=== PATIENT | female | born 1940 | race Caucasian/White ===

== ENCOUNTER 2016-07-19 16:38 | Emergency (ER) | payer MEDICARE ==
[~2016-07-19] VITALS: Ht 160 cm; Wt 60.0 kg
[~2016-07-19 16:38] MED LIST: ACET1TAB42 PO; AMT50T PO; ASCO100089 PO; ASPI-628 PO; CARB1TAB17 PO; CHOL100094 PO; CYCL5TAB PO; DILT240C87 PO; FOLI0.4T2 PO; GABA-502 PO; GLUC1TAB PO; HYDR25TA4 PO; LOVA20TA PO; LUBI8CAP4 PO; MAGN100P MC; OMEG10005 PO; [UNRECOGNIZED DRUG - CODE] PO
[2016-07-19 16:42] VITALS: BP 184/87; PULSE 77; RESP 28; O2SAT 100
[2016-07-19] MEDS ORDERED: LORazepam 1 mg Tablet PO ONE (18:45)
--- NOTE | 2016-07-19 19:00 | ED.REPORT ---
HPI-Chest Pain 40 and Over Date of Service Jul 19, 2016 ED Provider: Gee Perez DO The patient is a 75-year-old female with a history of Parkinson's disease, hypertension, hypothyroidism, anxiety, spinal disc problems, possible IBS, and diverticulosis who presents to the ER for elevated BP onset prior to arrival. Patient reports that she saw Dr. Chang (GI) yesterday and was started on Bentyl. She took 2 doses of the Bentyl with a Xanax this morning, and has not been feeling well. She reports body shaking, tingling, palpitations, chills, diaphoresis, chest pressure, tinnitus, and generalized weakness. She describes her chest pressure as "someone sitting on it," but it does not radiate else where. Her chest pain gets worse with deep breathing. Her BP at home was 204/74 , which is significantly higher than her normal BP (130s systolic). She is on HCTZ and Diltiazem for HTN. She took a baby ASA before coming to the ER. She denies any one-sided weakness, headache, dizziness, vision changes, SOB, vomiting, or numbness. She has chronic epigastric abdominal pain and diarrhea that is under ongoing workup by GI. There is a plan for EGD and colonoscopy. Of note, patient has had long history of anxiety and stress. Apparently she was on high dose of Xanax before her previous PCP took her off it in May 2016. She then experienced withdrawal symptoms and had to go back on the Xanax. She is taking Xanax 0.5mg PO 1 tab in the morning and 1/2 tab at bed time. She admits to be under a lot of stress lately. Nursing Notes Stated Complaint: BLOOD PRESSURE Chief Complaint: General Complaint Nursing Notes Reviewed: Yes Allergies: Coded Allergies: Sulfa (Sulfonamide Antibiotics) (Verified Allergy, Severe, RASH, 07/26/14) hydrocodone (Verified Allergy, Severe, GI UPSET, 07/26/14) Scheduled ([covera-hs]) 240 MG PO DAILY Amitriptyline (Amitriptyline) 50 Mg Tab 50 MG PO HS Ascorbic Acid (Vitamin C) 1,000 Mg Tab.chew 1,000 MG PO DAILY Aspirin (Aspir 81) 81 Mg Tablet. 81 MG PO DAILY Carbidopa/Levodopa 25-250 mg (Carbidopa/Levodopa 25-250 mg) 1 Each Tablet 1 EACH PO DAILY Cholecalciferol (Vitamin D3) (Vitamin D3) 1,000 Unit Capsule 1,000 UNIT PO DAILY Diltiazem ER (Diltiazem ER) 240 Mg Capsule.er 240 MG PO DAILY Folic Acid (Folic Acid) 0.4 Mg Tablet 0 PO DAILY Gabapentin (Gabapentin) 300 Mg Capsule 300 MG PO TID Glucosam/MSM/Vit C/Christoph/Hrb#21 (Glucosamine-MSM Complex Tab) 1 Each Tablet 1 EACH PO DAILY Hydrochlorothiazide (Hydrochlorothiazide) 25 Mg Tablet 25 MG PO DAILY Lovastatin (Lovastatin) 20 Mg Tablet 20 MG PO dinner Lubiprostone (Amitiza) 8 Mcg Capsule 8 MCG PO BID Magnesium Citrate (Magnesium Citrate) 100 Gm Powder 0 MC DAILY [place]-3 Fatty Acids ([place]-3) 1,000 Mg Capsule 2,000 MG PO DAILY Pantoprazole DR (Protonix) 40 Mg Tablet 40 MG PO DAILY Scheduled PRN Acetaminophen/Codeine 300-30mg (Acetaminophen/Codeine 300-30mg) 1 Each Tablet 1 EACH PO Q6 PRN PRN For Pain Cyclobenzaprine (Cyclobenzaprine) 5 Mg Tablet 5 MG PO TID PRN PRN spasms General Time Seen by MD: 18:00 Chief Complaint Chest pressure Hx Obtained From: Patient, Spouse, Daughter Arrived By: Walk-in Sudden in Onset?: Yes Onset Occurred: Just prior to arrival Symptom Duration: Since onset Location: : Substernal Quality: Heaviness, Pressure Radiation: : Does not radiate Migration/Movement: Reports: None Severity: Current: Mild Severity: Maximum: Severe Associated with: Reports: Diaphoresis, Nausea, Numbness/Tingling, Palpitations , Weakness, Denies: Dizziness, Fatigue, Lightheaded, Near-syncope, Shortness of Breath, Vomiting, Wheezing Pertinent Negative: Pt denies other symptoms Recent Healthcare: No recent hospitalization, Recent doctor visit Similar Sx Previous: No Risk Factors )( CAD Risk Stratification Hyperlipidemia Hypertension Risk factors reviewed )( TAD Risk Stratification Hypertension Risk factors reviewed )( PE Risk Stratification No risk factors Past Medical History Past Medical History Parkinson Anxiety Reports: Hypertension Reports: Thyroid disease Past Surgical History Cervical spine surgery Reports: Cataract surgery, Tonsillectomy Smoking History Former Smoker Social History Alcohol Use: 1-3 per week Drug Use: Denies drug use Other Social History: Good social support, Occupation Retired, Previously worked in [employer] at [employer] Ambulatory Status Independent Review of Systems Basic Review of Systems Eyes: Vision NL, No discharge ENT: Hearing NL, No pain, No nasal congestion, No pharyngeal pain Constitutional: Reports: Chills, Fatigue, Denies: Fever Respiratory: Denies: Dyspnea on exertion, Hemoptysis, Shortness of breath, Wheezing Cardiovascular: Reports: Chest pain, Palpitations, Denies: Edema, Orthopnea, Syncope GI: Reports: Abdominal pain, Diarrhea, Nausea, Denies: Anorexia, Bloody/tarry stool, Vomiting Musculoskeletal: Reports: Back pain Neurologic: Reports: Weakness, Denies: Change LOC, Confusion, Dizziness, Headache, Problem walking, Slurred speech, Vision change Psychiatric: Reports: Anxiety, Denies: Confusion, Delusional Complete sys rev & neg: except as marked. Physical Exam Initial Vital Signs Vital Signs (First) Date Time Temp Pulse Resp B/P Pulse Ox O2 Delivery O2 Flow Rate FiO2 07/19/16 16:42 36.8 77 28 184/87 100 Room Air Initial VS: Reviewed (hypertensive and tachypnea) Head / Eyes: Atraumatic, Normocephalic, PERRL ENT: Mucous membranes moist, Conjunctiva normal, No scleral icterus Neck: Supple, Non-tender, Full range of motion Lymphatic: No lymphadenopathy Skin: Warm, Dry, No cyanosis Neurologic: Alert, Oriented, Nonfocal General/Constitutional: Awake, Alert, No acute distress, Well appearing, Well nourished, Not toxic appearing Respiratory / Chest: Atraumatic, Breath sounds NL, Breath sounds = bilat, No respiratory distress, No rales, No wheezing, No retractions Cardiovascular: Heart rate NL, Regular rhythm, Heart sounds NL, Pulses = bilaterally Abdomen: Atraumatic, Soft, No rebound, BS normoactive, No distention Tenderness/Guarding/Rebound: Positive: Guarding voluntary, Tender diffuse Neurologic: Oriented X3, Speech NL, No motor deficits, No sensory deficits, CN II - XII intact, Cerebellar NL, Memory NL Interpretation & Diagnostics Lab Results Interpretation Result Diagram: 07/19/16185607/19/16 185 Test 07/19/16 18:57 07/19/16 21:07 White Blood Count 8.3th/mm3 (3.8-10.1) Red Blood Count 4.36mil/mm3 (3.90-5.20) Hemoglobin 13.2g/dL (12.0-15.6) Hematocrit 38.5% (35.0-46.0) Mean Corpuscular Volume 88.3fL (81-100) Mean Corpuscular Hemoglobin 30.3pg (27.0-35.0) Mean Corpuscular Hemoglobin Concent 34.3% (32.0-37.0) Red Cell Distribution Width 13.2% (12.3-15.4) Platelet Count 278bil/L (150-400) Neutrophils (%) (Auto) 78.4% (40-74) Lymphocytes (%) (Auto) 12.5% (14-46) Monocytes (%) (Auto) 7.9% (4-12) Eosinophils (%) (Auto) 0.5% (0-5) Basophils (%) (Auto) 0.5% (0-3) Sodium Level 135mEq/L (134-144) Potassium Level 3.6mEq/L (3.5-5.2) Chloride Level 98mEq/L (97-108) Carbon Dioxide Level 22mmol/L (18-29) Blood Urea Nitrogen 20mg/dL (8-27) Creatinine 0.92mg/dL (0.57-1.00) Estimat Glomerular Filtration Rate 85mL/min (>59) Glucose Level 116mg/dL (60-99) Calcium Level 9.9mg/dL (8.5-10.1) Magnesium Level 2.1mg/dL (1.6-2.6) Total Bilirubin 0.4mg/dL (0.0-1.2) Aspartate Amino Transf (AST/SGOT) 16U/L (0-50) Alanine Aminotransferase (ALT/SGPT) 13U/L (0-32) Alkaline Phosphatase 61U/L (25-165) Total Protein 6.7g/dL (6.4-8.4) Albumin 4.0g/dL (3.4-5.0) Lipase 30U/L (13-60) Thyroid Stimulating Hormone (TSH) 5.380uIU/mL (0.450-4.500) Hold Gastelum Top Tube Received (Received) Troponin T 0.010ug/L (0.0-0.011) Lab values outside NL range: no clinical significance. Lab Results Interpretation: TSH mildly elevated ECG Interpretation Time: 18:13 Interpreted by: ED physician Normal ECG Interpretation: Normal rate (71), Normal sinus rhythm, No acute ischemic changes Re-Eval/Medical Decision Med Decision/Clinical Course 75-year-old female with a history of Parkinson's disease, HTN, hypothyroidism, anxiety, pancreatic cyst, IBS, and diverticulosis who presents to the ER for elevated BP onset prior to arrival. She also admits to chest pressure, palpitations, epigastric pain, nausea, and generalized shaking. Her BP was 204/ 74 at home and 184/87 in the ER initially. She reports starting a new medication called Bentyl, but has been feeling sick the whole day. She tried some Xanax at home with no relief. Patient is also very anxious about her health in general. She saw Dr. Chang yesterday and is doing extensive workups, including EGD/Colonoscopy and CT abd scheduled to be in August. In the ER, patient appears anxious with hyperventilation and mild shaking, but overall nontoxic. She has diffuse moderate abdominal tenderness on exam, but this is not new to the patient. The rest of exam is benign with no neurological deficit. Negative EKG and troponin x 2. Although her TSH is mildly elevated, it is acceptable for her age. Her symptoms improved with Ativan and Prednisone in the ER. Patient is greatly concerned of her pancreatic cyst that could turn into cancer. However, given her history and clinical presentation, I do not think emergent imaging is indicated. Her vital signs and labs are negative for serious conditions such as ACS, stroke, pancreatitis, diverticulitis, or aortic dissection. It is likely that the chest pain is both referred pain from the epigastric and anxiety. There are numerous possible causes of her epigastric pain, including GERD, peptic ulcer, gastritis, hiatal hernia, pancreatitis cysts , or malignancy. However, because patient is undergoing extensive workups with GI as outpatient and already has the CT ordered, I will defer the workups to outpatient. All of these were explained to the patient. I also recommend her not to take the Bentyl tonight and call Dr. Chang tomorrow to see if she should continue with the Bentyl. Patient verbalized understanding and was discharged on improved condition. Source of Hx: Old records, Family Time of Eval: 19:55 Patient Status: Condition improved Re-Evaluation/Progress Note: Patient reports improvement of the anxiety after the Ativan 1mg PO was given. She still complains of epigastric pain and heartburn, which are not new symptoms. She has a history of pancreatic cyst on CT 4 years ago, and is very concerned of cancer. Pending order of a CT abd/pelvis from Dr. Chang as outpatient. I encouraged the patient to follow up with Dr. Chang for her abdominal symptoms as they are chronic with no new changes. She concurs. Time of Eval: 22:00 Patient Status: Condition improved Re-Evaluation/Progress Note: Patient reports improvement of the epigastric pain and chest pressure with the Protonix. Second trop came back negative. Patient agreed with discharge plans. Differential Diagnosis: Positive: Anxiety disorder, Chest pain, acute, Esophagitis, GERD, Gastritis, Hiatal hernia, Myocardial infarction Counseled Regarding: Diagnosis, Lab results, Need for follow-up, When/why to return to ED Discharge & Departure Shift Change Sign-Out Response to Therapy: Improved Primary Impression: Anxiety about health Additional Impression: Anxiety attack Disposition: Home Discharge Condition All VS Reviewed: Yes Condition: Stable Patient Instructions: Anxiety (ED) Additional Instructions: It is likely that your elevated blood pressure and symptoms are due to anxiety attack. It is understandable that you are under a lot of stress and is anxious about your health. However, you already have all the workups with Dr. Chang ( Continuous Improvement Lead) and I will defer to Dr. Chang for your abdominal symptoms. In the ER here, your EKG and labs are negative for a heart attack. It is possible that the chest pressure you experience is from either the epigastric abdominal pain or the anxiety. I will give you a prescription for a medication called Protonix that can help with your heartburn. Please talk to Dr. Chang and let him know that you were seen in the ER and given the Protonix. You should also call him tomorrow to ask if you should continue the Bentyl given the reactions you had today. Please do the labs and imaging studies that were ordered by Dr. Chang. He already ordered an abdominal CT and his office should contact you soon for the date. Follow up with your primary care doctor, Dr. Lynn, in a week to discuss about anxiety medication. You should also practice breathing and relaxation exercise. Your blood pressure in the ER was a little elevated, but it went down as you calm down. Continue to take your blood pressure medications and check your blood pressure daily. Please return to the ER if you develop severe chest pain, vomiting, headache, change in mental status, slurred speech, or one-sided weakness. Referrals: Lida Lynn DO (PCP) 1 Week Meliton Chang MD Attending Statement I personally took a history of performing exam. Greg is having a classic panic attack. MN was ruled out. PE seems very unlikely. She had no shortness of breath. She was clearly having a panic attack. This was medicated with a benzodiazepine and she looked and felt better. She will troponins were normal. She is discharged stable condition recommend close outpatient follow-up. copies to: Lida Lynn DO; Meliton Chang MD, Ngochanh H DO Jul 19, 2016 19:00 Gee Perez DO Jul 19, 2016 22:45
[2016-07-19 19:06] LABS: BASOPHILS % (AUTO) 0.5 % (0-3); EOSINOPHILS % (AUTO) 0.5 % (0-5); MONOCYTES % (AUTO) 7.9 % (4-12); Mean Corpuscular Hemoglobin 30.3 pg (27.0-35.0); Mean Corpuscular Volume 88.3 fL (81-100); NEUTROPHILS % (AUTO) 78.4 % (40-74); Platelet Count 278 bil/L (150-400)
[2016-07-19 19:28] LABS: TROPONIN T < 0.010 ug/L (0.0-0.011)
[2016-07-19 19:48] LABS: Lipase 30 U/L (13-60); Magnesium 2.1 mg/dL (1.6-2.6)
[2016-07-19 19:52] VITALS: BP 174/58; RESP 20; O2SAT 100
[2016-07-19] MEDS ORDERED: Pantoprazole 40 mg ER24 Tablet PO ONE (19:55)
[2016-07-19] MEDS ORDERED: PANT40TA2 PO (21:40)
[2016-07-19 22:15] VITALS: BP 153/62; PULSE 73; RESP 18; O2SAT 97
[2016-08-04] MEDS ORDERED: LORA0.5T PO (08:43)
== END 2016-07-19 22:16 | disposition home or self-care (01) ==
LOC: SED 16:38
DX: F41.9 Anxiety disorder, unspecified (principal); R25.1 Tremor, unspecified; R20.2 Paresthesia of skin; R00.2 Palpitations; H93.19 Tinnitus, unspecified ear; R07.2 Precordial pain; R53.1 Weakness; F43.9 Reaction to severe stress, unspecified; G89.29 Other chronic pain; R10.13 Epigastric pain; R19.7 Diarrhea, unspecified; I10 Essential (primary) hypertension; G20 Parkinson's disease; E03.9 Hypothyroidism, unspecified; Z79.82 Long term (current) use of aspirin; Z87.891 Personal history of nicotine dependence; Z88.2 Allergy status to sulfonamides; Z88.5 Allergy status to narcotic agent

== ENCOUNTER → 2016-08-04 | Day surgery (SDC) | payer MEDICARE ==
[~2016-08-04] VITALS: Ht 160 cm; Wt 60.0 kg
[~2016-08-04] MED LIST changes: +ASCO500C6 PO; +ASPI-973 PO; +CHOL10008 PO; +DICY10CA56 PO; +DILT240C89 PO; +DOCU240C41 PO; +LAC10 PO; +LEVO88TA4 PO; +LORA0.5T PO; +Lactated Ringer's 1,000 ML IV SCH; +Lidocaine PF 1% 30 mL Inj ONE; +MetoCLOpramide 5 mg/mL 2 mL Inj IVPUSH PRN; +Ondansetron 2 mg/mL 2 mL Inj IVPUSH PRN; +PANT40TA2 PO; +Propofol 10,000 mCg/mL 20 mL Inj ONE; +TRAZ150T72 PO
[2016-08-04 08:32] VITALS: BP 126/56; PULSE 67; RESP 16; O2SAT 99
--- NOTE | 2016-08-04 08:54 | PCM.HPANE ---
Patient Data Date of Service: Aug 04, 2016 Surgeon Admitting Provider: Attending Provider:Dread Hackett MD Primary Care Physician:Lida Lynn DO Other Provider:Sulema Beaver Anesthesia Reason for Visit Pancreatic Cyst Ht/WT & BMI Height (Feet): 5 Height (Inches): 3 Weight (Kilograms): 60 Body Mass Index 23.00 Allergies Coded Allergies: Sulfa (Sulfonamide Antibiotics) (Verified Allergy, Severe, RASH, 07/26/14) hydrocodone (Verified Allergy, Severe, GI UPSET, 07/26/14) Past Anesthesia History Anesthesia History: Denies:: Abnormal Airway, Anesthesia Reactions, Difficult Intubation, Fam Anesthesia Reaction, Fam Malignant Hypertherm, Malignant Hyperthermia Diabetes History Hx Diabetes?: No MRSA MRSA: No Medications Home Meds Incl Beta Naomi: No Active Scripts Pantoprazole DR (Protonix)40 Mg Iswrai61 Mg PO DAILY #30 TABLET Ref 0 Prov:GouldAngy yanessuresh H DO 07/19/16 Reported Medications Lorazepam 0.5 Mg Tablet0.5 Mg PO HS PRN For Insomnia Ref 0 08/04/16 Cholecalciferol (Vitamin D3) (Vitamin D3)1,000 Unit Capsule1,000 Unit PO DAILY 07/26/14 Ascorbic Acid (Vitamin C)1,000 Mg Tab.chew1,000 Mg PO DAILY #30 TABLET Ref 0 07/26/14 Magnesium Citrate 100 Gm Powder Mc Daily 07/26/14 Lovastatin 20 Mg Dvdyer01 Mg PO dinner #30 TABLET Ref 0 07/26/14 Hydrochlorothiazide 25 Mg Fvnsxi40 Mg PO DAILY 30 Days Ref 0 07/26/14 Gabapentin 300 Mg [id number] Mg PO TID 30 Days Ref 0 07/26/14 Diltiazem ER 240 Mg Capsule.er240 Mg PO DAILY 30 Days Ref 0 07/26/14 [covera-hs] No Conflict [id number] Mg PO DAILY 07/26/14 Carbidopa/Levodopa 25-250 mg 1 Each Tablet1 Each PO DAILY 07/26/14 Amitriptyline 50 Mg Tab50 Mg PO HS Ref 0 07/26/14 Lubiprostone (Amitiza)8 Mcg Capsule8 Mcg PO BID 07/26/14 Acetaminophen/Codeine 300-30mg 1 Each Tablet1 Each PO Q6 PRN For Pain Ref 0 07/26/14 Discontinued Reported Medications [place]-3 Fatty Acids ([place]-3)1,000 Mg Capsule2,000 Mg PO DAILY 07/26/14 Glucosam/MSM/Vit C/Christoph/Hrb#21 (Glucosamine-MSM Complex Tab)1 Each Tablet1 Each PO DAILY 07/26/14 Folic Acid 0.4 Mg Tablet Po Daily 07/26/14 Cyclobenzaprine 5 Mg Tablet5 Mg PO TID PRN spasms 07/26/14 Aspirin (Aspir 81)81 Mg Tablet.dr81 Mg PO DAILY Ref 0 07/26/14 History History of ENT Problems?: Yes HEENT History: Positive for:: Cataracts (S/P BILAT EXTRACTION) Dysphagia Denies:: Abnormal Airway Difficult Intubation Hearing Problem Denture Type: Full- Upper Full- Lower Teeth Condition: No Teeth Hx of Heart Problems?: Yes Cardiovascular History: Positive for:: Hypertension Denies:: Atrial Fibrillation Chest Pain Congestive Heart Failure Valvular Heart Disease Hx of Respiratory Problem?: No Respiratory History: Denies:: Asthma COPD Tuberculosis Use of C-PAP Machine Hx Neurologic Problems?: Yes Neurological History: Positive for:: Headaches Parkinson's Disease Denies:: CVA Hx of GI Problems?: Yes Hx of Problems?: No Female Hx: Denies:: Currently Skin History: Denies:: History Skin Disorders? Pressure Ulcers Hx Musculoskeletal Problems?: Yes Musculoskeletal History: Denies:: Fibromyalgia Joint Replacement Hx of Psycho/Social Problems?: No Psycho Social History: Positive for:: Anxiety Denies:: Hx Depression Hx Surgeries?: Yes (CERVICAL DISK REPLACEMENT) Hx Any Other Health Problems?: Yes Other History: Positive for:: Thyroid Disease Denies:: Cancer Endocrine Disease Hospitalization History Blood Transfusions: Denies:: Blood Transfusions Hx Diabetes: No Other Pertinent History: parkinson's diagnosed, no major symptoms per patient. occasional balance issues Hx Alcohol Use: Yes (occ)Hx Substance Use: No Smoking Status: Former Smoker Have You Smoked inLast 12 mo: No Stop/Bang Treated for Sleep Apnea?: No Do You Have a CPAP Machine?: No S-Snoring: Do You Snore Loudly: Yes T-Tired: feel tired, fatigued: No O-Obsered: Observed not breath: No P-Blood Pressure: treated: Yes B- Body Mass Index > 35 kg/m2: No A- Age over 50: Yes N- Neck Large Circumference: No G- Gender Male: No KRYSTLE Total Score: 3 Risk Assessment Category Category 1A: Patient has history of documented sleep apnea, and HAS NOT received any narcotic, sedative or anesthesia administration during this stay. Category 1B: Patient has history of documented sleep apnea, and HAS received any narcotic , sedative or anesthesia administration during this stay Category 2: Patient has SUSPECTED Obstructive Sleep Apnea, and HAS received any narcotic , sedative or anesthesia administration during this stay. Category 3: Patient has SUSPECTED Obstructive Sleep Apnea and HAS NOT received narcotic, sedative or anesthesia administration during this stay. Category 4: Outpatient in Procedural Areas with known sleep apnea or who screen positive for High Risk via the STOP/BANG questionnaire. Exam Exam Vital Signs Vital Signs Date Time Temp Pulse Resp B/P Pulse Ox O2 Delivery O2 Flow Rate FiO2 08/04/16 08:32 36.3 67 16 126/56 99 Room Air General Appearance: Alert, Oriented X3, Cooperative HEENT/AIRWAY: MP 2, Neck Movement (OK despite fusion) Lungs: Clear to Auscultation, Normal Air Movement Heart: Regular Rate/Rhythm, Normal S1, Normal S2 Plan Impression Patient chart reviewed, patient interviewed and anesthestic plan with risks, benefits, and alternatives discussed, and informed consent obtained. NPO per Anesth. Guidelines: Yes ASA Physical Status: ASA3 Severe Disease Anesthetic Plan: MAC Bene/Risks/Altern/Consents: Yes HP Complete Prior to Induction: Yes Eloy Funes MD Aug 04, 2016 08:48
[2016-08-04 09:50] VITALS: BP 107/54; PULSE 53; RESP 16; O2SAT 100
--- NOTE | 2016-08-04 09:57 | PCM.ANEP1 ---
Post Anesthesia PACU Phase 1 Assessment Vital Signs Vital Signs Date Time Temp Pulse Resp B/P Pulse Ox O2 Delivery O2 Flow Rate FiO2 08/04/16 09:50 35.7 53 16 107/54 100 Room Air 08/04/16 08:32 36.3 67 16 126/56 99 Room Air Anesthetic Administered: MAC Level of Alertness: Awake, talking WILSON's with Equal Strength: Yes Pain: No Nausea or Vomiting: No CV Function & Hydration Stable: Yes Airway Device: Oxygen Delivery: Room Air Lungs: Normal Air Movement PACU Phase 2 Assessment Complications: No Follow up Care: N/A Patient Instructions Provided: N/A Eloy Funes MD Aug 04, 2016 09:57
[2016-08-04 10:00] VITALS: BP 116/62; PULSE 59; RESP 16; O2SAT 100
[2016-08-04 10:07] VITALS: BP 117/58; PULSE 58; RESP 16; O2SAT 96
--- NOTE | 2016-08-04 10:22 | ENDO ---
[address] [address] ENDOSCOPY PROCEDURE PATIENT: MARBIN THOMAS : 1940 MR#: [id number] ADMIT: 08/04/2016 JOB ID: [id number] DATE: 08/04/2016 PROCEDURE: EUS. INDICATION: The patient with a pancreatic cyst in the tail. The patient also has multiple lesions on the liver on the right side. INSTRUMENT USED: Quintura-UCT 180 linear echo endoscope. MEDICATIONS: Please see Dr. Alin Funes's anesthesia report for details regarding sedation. PROCEDURE DETAILS: After informed consent was obtained, the patient was brought into the GI suite, where she was placed on oxygen via nasal cannula and then monitored with continuous pulse oximeter, telemetry and blood pressure monitoring. A time-out was performed. Then, she was placed in a left lateral decubitus position and a bite block was placed. The linear echo endoscope was then introduced through the bite block and advanced without difficulty to the second portion of the duodenum. Linear echo endoscopic imaging demonstrated the followin. In the tail of the pancreas, there was an approximately 10.7 mm x 8.4 mm well-circumscribed hypoechoic lesion. Appearance was consistent with a cyst. No septations were identified. No mural nodules were noted. The stricture did not appear to be communicating with the pancreatic duct. The remainder of the pancreas otherwise appeared unremarkable. The pancreatic duct measured approximately 3 mm in the body of the pancreas. 2. The remainder of the pancreatic examination was otherwise unremarkable except for some hyperechogenicity suggestive of fatty pancreas. 3. The common bile duct was identified and appeared to be normal in course and measured approximately 4.5 mm. 4. The portal vein was identified and normal flow was seen. 5. The splenic artery and splenic vein were identified and appeared normal. 6. The celiac axis was identified and appeared unremarkable. 7. Examined portions of the left lobe of the liver appeared normal. 8. The adrenal gland was identified and appeared normal. 9. Examined portions of the spleen and the left kidney appeared unremarkable. IMPRESSION: A 10.7 mm x 8.4 mm cyst in the tail of the pancreas with benign appearance. RECOMMENDATIONS: 1. Continued surveillance. Would recommend MRI in three months. 2. Additionally would recommend she undergo biopsy of the liver lesions seen on recent CT scan. COMPLICATIONS: None. ESTIMATED BLOOD LOSS: Less than 5 mL.
== END | disposition home or self-care (01) ==
LOC: END 00:56
PROVIDERS: ATTEND Internal Medicine Gastroenterology
DX: K86.2 Cyst of pancreas (principal); K76.9 Liver disease, unspecified; R10.12 Left upper quadrant pain; R19.7 Diarrhea, unspecified; I10 Essential (primary) hypertension; E78.5 Hyperlipidemia, unspecified; E03.9 Hypothyroidism, unspecified; G20 Parkinson's disease; F41.9 Anxiety disorder, unspecified; M19.90 Unspecified osteoarthritis, unspecified site; K21.9 Gastro-esophageal reflux disease without esophagitis; R73.03 Prediabetes; Z79.82 Long term (current) use of aspirin; Z87.891 Personal history of nicotine dependence
CPT/HCPCS: 43237; J7120

== ENCOUNTER → 2016-08-12 | Day surgery (SDC) | payer MEDICARE ==
[~2016-08-12] VITALS: Ht 160 cm; Wt 59.0 kg
[~2016-08-12] MED LIST changes: +0.9% Sodium Chloride 1,000 ML IV SCH; -ACET1TAB42 PO; -AMT50T PO; -ASCO100089 PO; -ASPI-628 PO; -CHOL100094 PO; -CYCL5TAB PO; -DILT240C87 PO; -FOLI0.4T2 PO; -GLUC1TAB PO; -LORA0.5T PO; -LUBI8CAP4 PO; +Lactated Ringer's 1,000 ML IV ONE; -Lidocaine PF 1% 30 mL Inj ONE; -MAGN100P MC; +PANT20TA2 PO; -PANT40TA2 PO; +Sodium Chloride LOK Flush 10 mL Syringe IV PRN; -[UNRECOGNIZED DRUG - CODE] PO; +fentaNYL-PF 50 mCg/mL 2 mL Inj IVPUSH PRN
[2016-08-12 07:34] VITALS: BP 155/77; PULSE 87; RESP 16; O2SAT 100
--- NOTE | 2016-08-12 08:10 | PCM.HPANE ---
Patient Data Date of Service: Aug 12, 2016 Surgeon Admitting Provider: Attending Provider:Meliton Chang MD Primary Care Physician:Lida Lynn DO Other Provider: Reason for Visit Diarrhea, Left Upper Quadrant Pain Ht/WT & BMI Height (Feet): 5 Height (Inches): 3 Weight (Kilograms): 59 Body Mass Index 23.00 Allergies Coded Allergies: Sulfa (Sulfonamide Antibiotics) (Verified Allergy, Severe, RASH, 08/12/16) hydrocodone (Verified Allergy, Severe, GI UPSET, 08/12/16) Past Anesthesia History Anesthesia History: Denies:: Abnormal Airway, Anesthesia Reactions, Difficult Intubation, Fam Anesthesia Reaction, Fam Malignant Hypertherm, Malignant Hyperthermia Diabetes History Hx Diabetes?: No MRSA MRSA: No Medications Home Meds Incl Beta Naomi: No Reported Medications Pantoprazole DR 20 Mg Tablet.dr20 Mg PO DAILY Ref 0 08/12/16 Cholecalciferol (Vitamin D3) (Vitamin D3)1,000 Unit Tab.chew1,000 Unit PO DAILY 08/11/16 Ascorbic Acid (Vitamin C)500 Mg Capsule.er1,000 Mg PO 08/11/16 Trazodone 150 Mg Tewute054 Mg PO HS Ref 0 08/11/16 Docusate Calcium (Stool Softener)240 Mg Uoiexmg041 Mg PO HS 08/11/16 [place]-3 Fatty Acids ([place]-3)1,000 Mg Capsule1,000 Mg PO DAILY 08/11/16 Lovastatin 20 Mg Qxdmiy29 Mg PO HS #30 TABLET Ref 0 08/11/16 Levothyroxine 88 Mcg Otdvby65 Mcg PO DAILY Ref 0 08/11/16 Hydrochlorothiazide 25 Mg Tdpqsl35 Mg PO DAILY 30 Days Ref 0 08/11/16 Gabapentin 300 Mg Tuviwli355 Mg PO TID Ref 0 08/11/16 Diltiazem ER 240 Mg Cap.er.05r173 Mg PO DAILY Ref 0 08/11/16 Carbidopa/Levodopa 25-250 mg 1 Each Tablet1 Tablet PO DAILY 08/11/16 Discontinued Reported Medications Lactulose 10 Gm/15 Ml Jxxenpxt29 Gm PO 08/11/16 Dicyclomine (Bentyl)10 Mg Gkvxxzm65 Mg PO QID 08/11/16 Aspirin 81 Mg Rptxuy24 Mg PO DAILY Ref 0 08/11/16 Lorazepam 0.5 Mg Tablet0.5 Mg PO HS PRN For Insomnia Ref 0 08/04/16 Cholecalciferol (Vitamin D3) (Vitamin D3)1,000 Unit Capsule1,000 Unit PO DAILY 07/26/14 Ascorbic Acid (Vitamin C)1,000 Mg Tab.chew1,000 Mg PO DAILY #30 TABLET Ref 0 07/26/14 Magnesium Citrate 100 Gm Powder Mc Daily 07/26/14 Lovastatin 20 Mg Vvzthg67 Mg PO dinner #30 TABLET Ref 0 07/26/14 Hydrochlorothiazide 25 Mg Uboyrc02 Mg PO DAILY 30 Days Ref 0 07/26/14 Gabapentin 300 Mg Opizyzn973 Mg PO TID 30 Days Ref 0 07/26/14 Diltiazem ER 240 Mg Capsule.er240 Mg PO DAILY 30 Days Ref 0 07/26/14 [covera-hs] No Conflict Lwtuj617 Mg PO DAILY 07/26/14 Carbidopa/Levodopa 25-250 mg 1 Each Tablet1 Each PO DAILY 07/26/14 Amitriptyline 50 Mg Tab50 Mg PO HS Ref 0 07/26/14 Lubiprostone (Amitiza)8 Mcg Capsule8 Mcg PO BID 07/26/14 Acetaminophen/Codeine 300-30mg 1 Each Tablet1 Each PO Q6 PRN For Pain Ref 0 07/26/[address] (Protonix)40 Mg Hfiklb43 Mg PO DAILY #30 TABLET Ref 0 Prov:Jacki Gould DO 07/19/16 History History of ENT Problems?: Yes HEENT History: Positive for:: Cataracts (S/P BILAT EXTRACTION) Dysphagia Denies:: Abnormal Airway Difficult Intubation Hearing Problem Denture Type: Full- Upper Full- Lower Teeth Condition: No Teeth Hx of Heart Problems?: Yes Cardiovascular History: Positive for:: Hypertension Denies:: AICD Atrial Fibrillation Chest Pain Congestive Heart Failure Pacemaker Valvular Heart Disease Hx of Respiratory Problem?: No Respiratory History: Denies:: Asthma COPD Tuberculosis Use of C-PAP Machine Hx Neurologic Problems?: Yes Neurological History: Positive for:: Headaches Parkinson's Disease Denies:: CVA Hx of GI Problems?: Yes Hx of Problems?: No Female Hx: Denies:: Currently (barbra) Skin History: Denies:: History Skin Disorders? Pressure Ulcers Hx Musculoskeletal Problems?: Yes Musculoskeletal History: Denies:: Joint Replacement Hx of Psycho/Social Problems?: No Psycho Social History: Positive for:: Anxiety Denies:: Hx Depression Hx Surgeries?: Yes (CERVICAL DISK REPLACEMENT) Hx Any Other Health Problems?: Yes Other History: Positive for:: Thyroid Disease Denies:: Cancer Endocrine Disease Hospitalization History Blood Transfusions: Denies:: Blood Transfusions Hx Diabetes: No Hx Alcohol Use: Yes (occ)Hx Substance Use: No Smoking Status: Former Smoker Have You Smoked inLast 12 mo: No Stop/Bang Treated for Sleep Apnea?: No Do You Have a CPAP Machine?: No S-Snoring: Do You Snore Loudly: No T-Tired: feel tired, fatigued: No O-Obsered: Observed not breath: No P-Blood Pressure: treated: Yes B- Body Mass Index > 35 kg/m2: No A- Age over 50: Yes N- Neck Large Circumference: No G- Gender Male: No KRYSTLE Total Score: 2 KRYSTLE Risk Assessment: Low Risk, <3 Yes Risk Assessment Category Category 1A: Patient has history of documented sleep apnea, and HAS NOT received any narcotic, sedative or anesthesia administration during this stay. Category 1B: Patient has history of documented sleep apnea, and HAS received any narcotic , sedative or anesthesia administration during this stay Category 2: Patient has SUSPECTED Obstructive Sleep Apnea, and HAS received any narcotic , sedative or anesthesia administration during this stay. Category 3: Patient has SUSPECTED Obstructive Sleep Apnea and HAS NOT received narcotic, sedative or anesthesia administration during this stay. Category 4: Outpatient in Procedural Areas with known sleep apnea or who screen positive for High Risk via the STOP/BANG questionnaire. Exam Exam Vital Signs Vital Signs Date Time Temp Pulse Resp B/P Pulse Ox O2 Delivery O2 Flow Rate FiO2 08/12/16 07:34 36.7 87 16 155/77 100 Room Air General Appearance: Alert, Oriented X3, Cooperative, Mild Distress HEENT/AIRWAY: MP 2 Lungs: Normal Air Movement Heart: Exam Unremarkable Plan Impression Patient chart reviewed, patient interviewed and anesthestic plan with risks, benefits, and alternatives discussed, and informed consent obtained. NPO per Anesth. Guidelines: Yes ASA Physical Status: ASA2 Mod Systemic Disease Anesthetic Plan: MAC Bene/Risks/Altern/Consents: Yes HP Complete Prior to Induction: Yes Adam Coronado MD Aug 12, 2016 08:10
--- NOTE | 2016-08-12 08:57 | PCM.ANEP1 ---
Post Anesthesia PACU Phase 1 Assessment Date of Service: Aug 12, 2016 Vital Signs 68 99% 18 114/61 36.5 Vital Signs Date Time Temp Pulse Resp B/P Pulse Ox O2 Delivery O2 Flow Rate FiO2 08/12/16 07:34 36.7 87 16 155/77 100 Room Air Anesthetic Administered: GA Level of Alertness: Awake, talking WILSON's with Equal Strength: Yes Pain: No Nausea or Vomiting: No CV Function & Hydration Stable: Yes Airway Device: Oxygen Delivery: Room Air Lungs: Normal Air Movement PACU Phase 2 Assessment Complications: No Follow up Care: N/A Patient Instructions Provided: N/A Adam Coronado MD Aug 12, 2016 08:57
[2016-08-12 09:05] VITALS: BP 163/78; PULSE 70; RESP 16; O2SAT 100
[2016-08-12 09:10] VITALS: BP 157/79; PULSE 72; RESP 16; O2SAT 100
[2016-08-12 09:23] VITALS: BP 176/76; PULSE 69; RESP 15; O2SAT 100
--- NOTE | 2016-08-12 11:28 | ENDO ---
[address] [address] ENDOSCOPY PROCEDURE PATIENT: MARBIN THOMAS : 1940 MR#: [id number] ADMIT: 08/12/2016 JOB ID: [id number] DATE: 08/12/2016 TYPE OF OPERATION: 1. Esophagogastroduodenoscopy with biopsy. 2. Colonoscopy. PREOPERATIVE DIAGNOSIS(ES): Abdominal pain and diarrhea. POSTOPERATIVE DIAGNOSIS(ES): 1. Large hiatal hernia. 2. Mild nonerosive gastritis. 3. Failed colonoscopy: We reached to 40 cm due to a tortuous sigmoid colon and extensive adhesions at this region. ANESTHESIA: Monitored anesthesia care. COMPLICATIONS: None. BLOOD LOSS: Minimal. DESCRIPTION OF PROCEDURE: After the risks and benefits were explained to the patient, informed consent was obtained. After anesthesia administered, upper endoscope was then inserted into the mouth, intubating the esophagus, stomach, second portion of duodenum. Mucosa carefully examined. After procedure was done, the scope withdrawn and procedure terminated. Colonoscope was then inserted from the rectum to the sigmoid colon. Mucosa carefully examined. Prep of the patient was suboptimal. After procedure was done, scope withdrawn and procedure terminated. FINDINGS: Upon inspection of the esophagus, the esophagus was normal without masses, ulcers or lesions. Z-line located at 35 cm from incisors. Upon entering the stomach, there was a mild nonerosive gastritis that was seen. No masses or ulcers seen. Retroflexion showed a large hiatal hernia. Duodenal bulb, first and second portion normal. Biopsy taken of duodenum, antrum, body and distal esophagus. Upon inspection of the anus, no masses, hemorrhoids, ulcers, or fistula that are seen. Throughout the entire examination, there was very extensive sigmoid diverticulosis and very tortuous sigmoid colon which failed after the scope after several attempts failed to pass through. The case was then aborted. IMPRESSIONS: 1. Large hiatal hernia. 2. Mild nonerosive gastritis. 3. Extensive sigmoid diverticulosis that with adhesions and paradoxical movement with the endoscope which could not pass through at 40 cm from the anus. RECOMMENDATIONS: 1. Await pathology results. 2. Referral to a tertiary center in [place] for failed colonoscopy. 3. Followup in GI clinic as needed.
== END | disposition home or self-care (01) ==
LOC: END 00:23
PROVIDERS: ATTEND Internal Medicine Gastroenterology
DX: K57.30 Diverticulosis of large intestine without perforation or abscess without bleeding (principal); K66.0 Peritoneal adhesions (postprocedural) (postinfection); K44.9 Diaphragmatic hernia without obstruction or gangrene; R19.7 Diarrhea, unspecified; R10.12 Left upper quadrant pain; I10 Essential (primary) hypertension; E78.5 Hyperlipidemia, unspecified; E03.9 Hypothyroidism, unspecified; F41.9 Anxiety disorder, unspecified; M81.0 Age-related osteoporosis without current pathological fracture; K21.9 Gastro-esophageal reflux disease without esophagitis; R73.03 Prediabetes; Z79.82 Long term (current) use of aspirin; Z53.8 Procedure and treatment not carried out for other reasons
CPT/HCPCS: 43239; 45380; J7030; J7120

== ENCOUNTER 2016-09-23 15:06 | Inpatient (IN) | payer MEDICARE ==
[~2016-09-23] VITALS: Ht 157.5 cm; Wt 60.1 kg
[~2016-09-23 15:06] MED LIST changes: -0.9% Sodium Chloride 1,000 ML IV SCH; +ALPR0.5T8 PO; -ASPI-973 PO; -DICY10CA56 PO; -LAC10 PO; -Lactated Ringer's 1,000 ML IV ONE; -Lactated Ringer's 1,000 ML IV SCH; +MAGN100T6 PO; -MetoCLOpramide 5 mg/mL 2 mL Inj IVPUSH PRN; +NITR100C PO; +ONDA4TAB6 PO; +OXYC1TAB24 PO; -Ondansetron 2 mg/mL 2 mL Inj IVPUSH PRN; -PANT20TA2 PO; +PANT40TA3 PO; -Propofol 10,000 mCg/mL 20 mL Inj ONE; -Sodium Chloride LOK Flush 10 mL Syringe IV PRN; -fentaNYL-PF 50 mCg/mL 2 mL Inj IVPUSH PRN
--- NOTE | 2016-09-23 16:15 | NUR ---
Arrived on Unit Patient arrived on floor from the [facility] in stable condition with at her side. VSS. Patient reports mild pain and denies nausea at this time. IV in place from [facility]. A&Ox3. Admit completed. Patient orientated to call light, bed, and visiting hours. Call light and tray table within reach. Will continue to monitor patient hourly.
[2016-09-23 16:20] VITALS: BP 149/58; PULSE 79; RESP 18; O2SAT 99
[2016-09-23] MEDS ORDERED: Alum-Mag Hydrox-Simeth 30 mL Suspension PO PRN (16:45)
--- NOTE | 2016-09-23 17:13 | PCM.HPMED ---
Subjective Date of Service Sep 23, 2016 Primary Provider: Admitting Physician: Dom Villalpando MD Primary Care Physician: Lida Lynn DO Attending Physician: Dom Villalpando MD Admit Status: Direct Admit, Admit to [place] Team Chief Complaint: Progressive worsening lower abdominal pain/3 months History of Present Illness: Chely is a pleasant 75 yo lady with past medical history of hypothyroidism, Parkinson's disease, HLD,HTN was sent from [facility] by Dr Smith for direct admission due to progressively worsening lower abdominal pain of 3 months. She has been having progressively worsening dull aching lower abdominal pain for the last 3-4 months. She was seen by gastroenterology 2 month ago ,CT revealed multiple small masses and workup for primary continued.EGD unremarkable. Colonoscopy unable to pass past sigmoid. Main focus was on pancreatic tail due to known pancreatic tail cystic mass. EUS also done. She was also referred to [facility] for further workup. Biopsy done on September 08 revealed high-grade serous carcinoma with elevated CEA 125. 3 days ago she came to [facility] accompanying her who is also a patient of Dr. Smith for follow-up of prostate cancer. She told Dr Smith she has been having worsening of her lower abdominal pain with worsening constipation. She was seen today for urgent oncology consult. Sent for direct admission due to worsening lower abdominal pain and constipation to rule out partial obstruction and to start chemotherapy on Monday. She also lost weight,around 20 pounds in 3-4 months . She has lifelong chronic constipation which has progressively worsened in the last 3 months. Review of Systems: Comprehensive review of systems performed, pertinent positives and negatives included in history of present illness Allergies Coded Allergies: Sulfa (Sulfonamide Antibiotics) (Verified Allergy, Severe, RASH, 09/23/16) hydrocodone (Verified Allergy, Severe, GI UPSET, 09/23/16) Home Medications Xanax 0.5 mg 3 times a day. Diltiazem extended release 240 mg. Daily Levothyroxine 88 daily Carbidopa/levodopa 25/250 i tab daily Lovastatin 20 mg bedtime Magnesium citrate 500 mg daily Zofran 4 mg by mouth. Pantoprazole 40 mg daily Trazodone 150 mg by mouth at bed time percocet PMH Hypothyroidism. Anxiety. Mild Parkinson disease. Hyperlipidemia. Essential hypertension. History of cystitis. Dyspepsia. Large hiatal hernia. Surgical History Left ovariectomy at age 46 Hysterectomy Cervical spine surgery with metal prosthesis Left flank lipoma resection in May 2016 Family History Father in his 60s due to alcohol problem Mother of Parkinson's/dementia old age Daughter has melanoma No other family history of cancer Social History Hx Alcohol Use: No Hx Substance Use: No Hx Tobacco Use: No Smoking Status: Former Smoker Exam Vital Signs Vital Sign - Last Date Time Temp Pulse Resp B/P Pulse Ox O2 Delivery O2 Flow Rate FiO2 09/23/16 16:20 36.4 79 18 149/58 99 Room Air Exam Gen. patient is lying comfortably in hospital bed HEENT: Head is normocephalic atraumatic, Pupils equal and reactive, extraocular movements intact, Lungs clear to auscultation bilaterally Heart regular rate and rhythm without murmurs gallops or rubs Abdomen mild lower abdominal tenderness with suprapubic fullness. Without hepatosplenomegaly Extremities pulses are present dorsalis pedis posterior tibialis and radial. tSkin is warm and dry there are no rashes, Psych alert and oriented to person place and time Neuro cranial nerves II through XII are grossly intact Lymph: There is no lymphadenopathy appreciated in the cervical supra infraclavicular regions : no luna [facility] X-Rays, CTs and MRIs CT abd/pelvis 07/21/2016 IMPRESSION: 1. Slightly increased prominence of pancreatic tail cystic focus as above. Increased size of pancreatic tail lesion does raise concern for cystic neoplasm. 2. Interval development of soft tissue masses within the abdomen/pelvis as well as along the posterior aspect of the liver as described above. Given presence of enlarging cystic mass within the pancreas, findings are most concerning for metastatic disease. 3. Mild appearance of ascites within the lower pelvis particularly surrounding bowel loops. Dictated by: Jody Matthews M.D. on 07/21/2016 at 16:03 Approved by: Jody Matthews M.D. on 07/21/2016 at 16:25 ADDENDUM: The findings were discussed with Dr. Hackett 08/04/16 at 8:30 AM. In addition to the perihepatic focus identified adjacent to this appear aspect of the right kidney, there is a similar enhancing focus adjacent to the posterior right hepatic lobe measuring approximately 8 mm on series 2 image 17. Additionally, there is a low attenuation nodular contour along the superior right hepatic dome measuring up A. 15 mm, seen on series 2 image 10. As discussed, findings are concerning for neoplasm. Dictated by: Jody Matthews M.D. on 08/04/2016 at 9:13 Assessment & Plan Chely is a pleasant 75 yo lady with past medical history of hypothyroidism, Parkinson's disease, HLD,HTN was sent from [facility] by Dr Smith for direct admission due to progressively worsening lower abdominal pain of 3 months. # advanced high-grade serous carcinoma, ovarian -repeat CT C/A/P to see progression of disease -Chemotherapy planned for Monday --IV fluids # Abdominal pain and constipation -due to cancer but will need to rule out partial obstruction -CT pending -pain control with morphine iv # hypothyroidism, -Continue home Synthroid #Parkinson's disease, -Continue home medication #HLD, -Continue home statin #HTN -Continue diltiazem full code per patient and loveonx for ppx Patient admitted under inpatient status with expected length of stay > 2 midnights for severity of present symptoms, complexities of treatment plan and risk for adverse events Resuscitation Status: CPR: Attempt Resuscitation copies to: Van Flower DO; Tj Hernandez MD; Lida Lynn Melaku MD Sep 23, 2016 17:13
[2016-09-23 17:50] VITALS: PULSE 87
--- NOTE | 2016-09-23 18:04 | PROG NOTE ---
[address] [address] PROGRESS NOTE PATIENT: MARBIN THOMAS : 1940 MR#: [id number] ADMIT: 09/23/2016 JOB ID: [id number] DATE: 09/23/2016 The patient was seen in initial consultation today in the Cancer [facility] which led to the admission for management of pain, nausea, rehydration, and repeat imaging to rule out obstructive process in the abdomen. For details, please refer to my consult note of earlier today from the office visit in the Cancer Center. She has high-grade serous carcinoma of gynecologic origin and is planned to receive chemotherapy if no urgent process is happening in the abdomen on Monday.
[2016-09-23 19:54] VITALS: BP 175/75; PULSE 71; RESP 18; O2SAT 98
--- NOTE | 2016-09-23 20:02 | DRSVH ---
PROCEDURE: CT CHEST, ABDOMEN AND PELVIS [facility] CONTRAST ([id number]) INDICATIONS: 75 year-old female with ovarian carcinoma and abdominal pain. Evaluate for bowel obstruc tion. TECHNIQUE: After the administration of oral and intravenous contrast, 5 mm thick sections acquired from the lung apices to the symphysis. 5 mm coronal and sagittal reformats were performed, with additional 7 mm c oronal MIP reformats through the lungs. For radiation dose reduction, the following was used: autom ated exposure control, adjustment of mA and/or kV according to patient size. COMPARISON: [facility], CT, CT ABD PEL[facility] W CON, 07[facility]21[facility]2016[facility] 14[facility]59[facility]CON (PNL), 07/26/2014, 18:30. [facility], CT, CHEST ANGIO-PE, 013, 1:47. [facility] , CT, ABD/PELVIS W/CON (PNL), 11/16/2009, 9:30. [facility] , CT, ABD/PELVIS W/CON (PN), 06/30/2006, 13:46. FINDINGS: Image quality: Excellent. CHEST: Lungs and pleura: No acute airspace opacities. No pleural effusions or pneumothorax. Central and p eripheral airways appear patent and normal in caliber. Mediastinum: Heart size is normal, with coronary artery atherosclerosis. No pericardial effusion. No mediastinal or hilar adenopathy by size criteria. Thoracic aorta and central pulmonary arteries a re normal in size. Esophagus is normal in caliber, with large hiatal hernia again noted. Chest wall: No axillary or supraclavicular adenopathy by size criteria. ABDOMEN: Solid organs: Liver and spleen are normal in size and enhancement. Gallbladder wall thickness is no rmal. Biliary system is non dilated. Pancreas again demonstrates a cystic 12 x 8 mm lesion within t he tail (8 x 7 mm on November 16, 2009 comparison). No adrenal nodules. Kidneys demonstrate normal s ize and enhancement, without hydronephrosis. Bilateral incidental extrarenal pelves are again noted. Peritoneum and bowel: Bowel loops demonstrate normal wall thickness and caliber. There is moderate s igmoid colon diverticulosis. On axial image 94, 5.9 x 3.0 cm anterior lobulated lesion within the ome ntum has increased in prominence (previously 4.3 x 2.4 cm). On axial image 64, an additional 1.8 cm t umor implant in the right hepatorenal recess is not significantly changed. A on axial image 16 and 15 , additional small peritoneal tumor implants along the posterior and lateral right hepatic lobe capsu le have not significantly changed. There is trace free pelvic fluid. No free air. Nodes and vessels: No retroperitoneal or mesenteric adenopathy by size criteria. Aorta and inferior vena cava are normal in size, with widespread aortoiliac atherosclerosis. Miscellaneous: No ventral hernias. PELVIS: Genitourinary: Bladder wall thickness is normal. Bladder wall thickness is normal. Uterus is surgic ally absent. Bilateral heterogeneous adnexal masses have increased in size since July 21, 2016. Miscellaneous: No inguinal hernias or adenopathy. Bones: No suspicious bony lesions. No vertebral body compression fractures. There is lumbar and low er thoracic spine disc degeneration, with scattered sclerotic endplate degenerative change. IMPRESSION: 1. No evidence for bowel obstruction to explain abdominal pain. 2. Interval increased sizes of anterior omental lobulated mass, as well as bilateral adnexal mass les ions, consistent with disease progression in the setting of metastatic ovarian carcinoma. Additional tumor implants in the right hepatorenal recess and adjacent to the lateral right hepatic lobe have no t significantly changed in size. 3. 12 x 8 mm lesion within the pancreatic tail has progressively increased in size since 2006, sugges ting small cystic neoplasm as well. 4. Large retrocardiac hiatal hernia again noted. 5. Moderate sigmoid colon diverticulosis. Dictated by: Johnnie Roberto M.D. on 09/23/2016 at 19:41 Approved by: Johnnie Roberto M.D. on 09/23/2016 at 20:01
[2016-09-23] MEDS: Ondansetron 2 mg/mL 2 mL Inj IVPUSH PRN (20:31)
[2016-09-23] MEDS: 0.9% Sodium Chloride 1,000 ML IV SCH (22:58)
[2016-09-23] MEDS: ALPRAZolam 0.5 mg Tablet PO PRN (23:03)
[2016-09-23] MEDS: oxyCODONE-Acetamin 5-325 mg Tablet PO PRN (23:12)
--- NOTE | 2016-09-23 23:50 | NUR ---
Pain /Anxiety Patient stated pain 7/10 on pain scale during initial assessment. Patient has ovarian cancer and starts chemotherapy next week. Patient states that she suffers from anxiety and between benzodiazepines and pain medication , she can "shut off her brain". Patient went down to CT at 1910. Patient was nauseous on return and ondansetron 4mg IVP was administered. VSS. Call light within reach. Care continues.
[2016-09-24] VITALS (8 sets, daily range): BP systolic 152–185; BP diastolic 62–95; PULSE 73–82; RESP 16–19; O2SAT 95–100
[2016-09-24] MEDS: 0.9% Sodium Chloride 1,000 ML IV SCH (02:44)
[2016-09-24] MEDS: Ondansetron 2 mg/mL 2 mL Inj IVPUSH PRN ×3 (06:14→16:12)
[2016-09-24 07:02] LABS: BASOPHILS % (AUTO) 0.1 % (0-3); EOSINOPHILS % (AUTO) 0 % (0-5); Mean Corpuscular Hemoglobin 30.1 pg (27.0-35.0); Mean Corpuscular Volume 89.5 fL (81-100); NEUTROPHILS % (AUTO) 90.3 % (40-74); Platelet Count 277 bil/L (150-400)
[2016-09-24 07:26] LABS: Magnesium 2.3 mg/dL (1.6-2.6)
[2016-09-24] MEDS: HYDROmorphone 1 mg/mL Inj IVPUSH PRN ×4 (07:59→20:18)
--- NOTE | 2016-09-24 08:59 | PCM.PNMED ---
Subjective Date of Service Sep 24, 2016 Subjective Continues to have lower abdominal pain, not controlled with morphine. Also has nausea. Exam Vital Signs Vital Sign - Last Date Time Temp Pulse Resp B/P Pulse Ox O2 Delivery O2 Flow Rate FiO2 09/24/16 06:15 82 09/24/16 06:10 36.3 16 185/95 95 Room Air Intake and Output 09/23/16 09/23/16 09/24/16 Cumulative From/Thru 15:00 23:00 07:00 09/23/16 16:35 - 09/24/16 06:38 Intake Total 1316 ml 1316 ml Output Total 400 ml 400 ml 800 ml Balance -400 ml 916 ml 516 ml Intake Oral 600 ml 600 ml IV Total 716 ml 716 ml Output Urine Total 400 ml 400 ml 800 ml # Voids 1 1 2 Exam Gen. patient is lying comfortably in hospital bed HEENT: Head is normocephalic atraumatic, Pupils equal and reactive, extraocular movements intact, Lungs clear to auscultation bilaterally Heart regular rate and rhythm without murmurs gallops or rubs Abdomen mild lower abdominal tenderness with suprapubic fullness. Without hepatosplenomegaly Extremities pulses are present dorsalis pedis posterior tibialis and radial. tSkin is warm and dry there are no rashes, Psych alert and oriented to person place and time Neuro cranial nerves II through XII are grossly intact Lymph: There is no lymphadenopathy appreciated in the cervical supra infraclavicular regions : no luna IVs and Medications Medications Reviewed: Medications were reviewed in detail Lab and Diagnostics Result Diagram: 09/24/16 0520 09/24/16 0520 X-Rays, CTs and MRIs CT abd/pelvis 07/21/2016 IMPRESSION: 1. Slightly increased prominence of pancreatic tail cystic focus as above. Increased size of pancreatic tail lesion does raise concern for cystic neoplasm. 2. Interval development of soft tissue masses within the abdomen/pelvis as well as along the posterior aspect of the liver as described above. Given presence of enlarging cystic mass within the pancreas, findings are most concerning for metastatic disease. 3. Mild appearance of ascites within the lower pelvis particularly surrounding bowel loops. Dictated by: Jody Matthews M.D. on 07/21/2016 at 16:03 Approved by: Jody Matthews M.D. on 07/21/2016 at 16:25 ADDENDUM: The findings were discussed with Dr. Hackett 08/04/16 at 8:30 AM. In addition to the perihepatic focus identified adjacent to this appear aspect of the right kidney, there is a similar enhancing focus adjacent to the posterior right hepatic lobe measuring approximately 8 mm on series 2 image 17. Additionally, there is a low attenuation nodular contour along the superior right hepatic dome measuring up A. 15 mm, seen on series 2 image 10. As discussed, findings are concerning for neoplasm. Dictated by: Jody Matthews M.D. on 08/04/2016 at 9:13 PROCEDURE: CT CHEST, ABDOMEN AND PELVIS WTIH CONTRAST ([id number]) INDICATIONS: 75 year-old female with ovarian carcinoma and abdominal pain. Evaluate for bowel obstruction. IMPRESSION: 1. No evidence for bowel obstruction to explain abdominal pain. 2. Interval increased sizes of anterior omental lobulated mass, as well as bilateral adnexal mass lesions, consistent with disease progression in the setting of metastatic ovarian carcinoma. Additional tumor implants in the right hepatorenal recess and adjacent to the lateral right hepatic lobe have not significantly changed in size. 3. 12 x 8 mm lesion within the pancreatic tail has progressively increased in size since 2006, suggesting small cystic neoplasm as well. 4. Large retrocardiac hiatal hernia again noted. 5. Moderate sigmoid colon diverticulosis. Dictated by: Johnnie Roberto M.D. on 09/23/2016 at 19:41 12-lead ECG NSR Assessment & Plan Chely is a pleasant 75 yo lady with past medical history of hypothyroidism, Parkinson's disease, HLD,HTN was sent from [facility] by Dr Smith for direct admission due to progressively worsening lower abdominal pain of 3 months. # advanced high-grade serous carcinoma, ovarian -repeat CT C/A/P shows progression of disease -Chemotherapy planned for Monday --IV fluids # Abdominal pain and constipation -due to cancer . ruled out bowel obstruction -CT as above -pain control with Dilaudid iv . Pain not controlled with morphine # hypothyroidism, -Continue home Synthroid #Parkinson's disease, -Continue home medication #HLD, -Continue home statin #HTN -Continue diltiazem full code per patient and loveonx for ppx Patient admitted under inpatient status with expected length of stay > 2 midnights for severity of present symptoms, complexities of treatment plan and risk for adverse events disposition:3-4 days pending chemotherapy VTE Mechanical Devices: Intermittant Pneumatic CD Resuscitation Status: CPR: Attempt Resuscitation Dom Villalpando MD Sep 24, 2016 08:59
[2016-09-24] MEDS: ALPRAZolam 0.5 mg Tablet PO PRN ×2 (11:46→21:49)
[2016-09-24] MEDS: Pantoprazole 40 mg ER24 Tablet PO SCH (11:46)
[2016-09-24] MEDS: Diltiazem CD 240 mg ER24 Capsule PO SCH (11:46)
[2016-09-24] MEDS: Polyethylene Glycol (PEG) 17 Gm Powder PO PRN (11:58)
--- NOTE | 2016-09-24 17:56 | NUR ---
Activity Pt having significant pain during beginning of shift, switched to Dilaudid and tried 0.5mg, which wore off quickly. Increased to 1mg at next dosing time and pt had much more relief. Anxiety medications given and IV zofran for nausea given twice. Pt feeling "gassy" and worried about constipation. Medications and prune juice given and pt able to have BM. Able to walk in hallways with spouse. Bed in low, call light in reach, care continues.
[2016-09-24] MEDS: Carbidopa-Levodopa 25-250 mg Tablet PO SCH (20:17)
[2016-09-25] VITALS (7 sets, daily range): BP systolic 136–157; BP diastolic 67–79; PULSE 58–76; RESP 14–19; O2SAT 94–97
[2016-09-25] MEDS: HYDROmorphone 1 mg/mL Inj IVPUSH PRN ×7 (00:31→23:01)
[2016-09-25] MEDS: Ondansetron 2 mg/mL 2 mL Inj IVPUSH PRN ×3 (00:35→19:45)
--- NOTE | 2016-09-25 05:15 | NUR ---
Pain Pain adequately controlled with IV Dilaudid but needs it every 4 hours, pain returns before 4 hours are fully past. Mild nausea well controlled with Zofran. Continuing with bowel meds. Hourly rounding ongoing.
[2016-09-25] MEDS: Pantoprazole 40 mg ER24 Tablet PO SCH (06:08)
[2016-09-25] MEDS: ALPRAZolam 0.5 mg Tablet PO PRN ×3 (06:08→23:01)
[2016-09-25] MEDS ORDERED: 0.9% Sodium Chloride 1,000 ML IV ONE (08:10)
[2016-09-25] MEDS: Diltiazem CD 240 mg ER24 Capsule PO SCH (08:54)
[2016-09-25] MEDS: Polyethylene Glycol (PEG) 17 Gm Powder PO PRN (12:05)
[2016-09-25] MEDS ORDERED: Sodium Chloride LOK Flush 10 mL Syringe IVFLUSH PRN ×2 (12:25)
--- NOTE | 2016-09-25 13:58 | PCM.PNMED ---
Subjective Date of Service Sep 25, 2016 Subjective Pain controlled today with Dilaudid. Has nausea but no vomiting Exam Vital Signs Vital Sign - Last Date Time Temp Pulse Resp B/P Pulse Ox O2 Delivery O2 Flow Rate FiO2 09/25/16 13:46 36.2 67 15 146/67 97 Room Air Intake and Output 09/24/16 09/24/16 09/25/16 Cumulative From/Thru 15:00 23:00 07:00 09/23/16 16:35 - 09/25/16 06:14 Intake Total 179 ml 900 ml 400 ml 2795 ml Output Total 500 ml 50 ml 1350 ml Balance 179 ml 400 ml 350 ml 1445 ml Intake Oral 900 ml 400 ml 1900 ml IV Total 179 ml 895 ml Output Urine Total 500 ml 50 ml 1350 ml # Voids 5 7 Exam Gen. patient is lying comfortably in hospital bed HEENT: Head is normocephalic atraumatic, Pupils equal and reactive, extraocular movements intact, Lungs clear to auscultation bilaterally Heart regular rate and rhythm without murmurs gallops or rubs Abdomen mild lower abdominal tenderness with suprapubic fullness. Without hepatosplenomegaly Extremities pulses are present dorsalis pedis posterior tibialis and radial. tSkin is warm and dry there are no rashes, Psych alert and oriented to person place and time Neuro cranial nerves II through XII are grossly intact Lymph: There is no lymphadenopathy appreciated in the cervical supra infraclavicular regions : no luna IVs and Medications Medications Reviewed: Medications were reviewed in detail Lab and Diagnostics Result Diagram: 09/24/16 0520 09/24/16 0520 X-Rays, CTs and MRIs CT abd/pelvis 07/21/2016 IMPRESSION: 1. Slightly increased prominence of pancreatic tail cystic focus as above. Increased size of pancreatic tail lesion does raise concern for cystic neoplasm. 2. Interval development of soft tissue masses within the abdomen/pelvis as well as along the posterior aspect of the liver as described above. Given presence of enlarging cystic mass within the pancreas, findings are most concerning for metastatic disease. 3. Mild appearance of ascites within the lower pelvis particularly surrounding bowel loops. Dictated by: Jody Matthews M.D. on 07/21/2016 at 16:03 Approved by: Jody Matthews M.D. on 07/21/2016 at 16:25 ADDENDUM: The findings were discussed with Dr. Hackett 08/04/16 at 8:30 AM. In addition to the perihepatic focus identified adjacent to this appear aspect of the right kidney, there is a similar enhancing focus adjacent to the posterior right hepatic lobe measuring approximately 8 mm on series 2 image 17. Additionally, there is a low attenuation nodular contour along the superior right hepatic dome measuring up A. 15 mm, seen on series 2 image 10. As discussed, findings are concerning for neoplasm. Dictated by: Jody Matthews M.D. on 08/04/2016 at 9:13 PROCEDURE: CT CHEST, ABDOMEN AND PELVIS WTIH CONTRAST ([id number]) INDICATIONS: 75 year-old female with ovarian carcinoma and abdominal pain. Evaluate for bowel obstruction. IMPRESSION: 1. No evidence for bowel obstruction to explain abdominal pain. 2. Interval increased sizes of anterior omental lobulated mass, as well as bilateral adnexal mass lesions, consistent with disease progression in the setting of metastatic ovarian carcinoma. Additional tumor implants in the right hepatorenal recess and adjacent to the lateral right hepatic lobe have not significantly changed in size. 3. 12 x 8 mm lesion within the pancreatic tail has progressively increased in size since 2006, suggesting small cystic neoplasm as well. 4. Large retrocardiac hiatal hernia again noted. 5. Moderate sigmoid colon diverticulosis. Dictated by: Johnnie Roberto M.D. on 09/23/2016 at 19:41 12-lead ECG NSR Assessment & Plan Chely is a pleasant 75 yo lady with past medical history of hypothyroidism, Parkinson's disease, HLD,HTN was sent from [facility] by Dr Smith for direct admission due to progressively worsening lower abdominal pain of 3 months. # advanced high-grade serous carcinoma, ovarian -repeat CT C/A/P shows progression of disease -Chemotherapy planned for Monday.PICC ordered --IV fluids NS at 100ml/h # Abdominal pain and constipation -due to cancer . ruled out bowel obstruction -CT as above -pain control with Dilaudid iv . Pain not controlled with morphine # hypothyroidism, -Continue home Synthroid #Parkinson's disease, -Continue home medication #HLD, -Continue home statin #HTN -Continue diltiazem full code per patient and loveonx for ppx Patient admitted under inpatient status with expected length of stay > 2 midnights for severity of present symptoms, complexities of treatment plan and risk for adverse events disposition:3-4 days pending chemotherapy VTE Mechanical Devices: Intermittant Pneumatic CD Resuscitation Status: CPR: Attempt Resuscitation Dom Villalpando MD Sep 25, 2016 13:58
--- NOTE | 2016-09-25 17:49 | NUR ---
Social Work: Initial Assessment/Multi-Disciplinary Rounds D: EMR reviewed. Please see Initial Assessment linked to this note for more information. Pt is a 75 y/o female admitted [place] for pain management, hydration, constipation per H&P. Pt has a readmit risk score of 3. Pt's insurance is Medicare and [employer] Supplemental. PCP is Lida Lynn DO. SW met with pt at bedside to conduct initial assessment. Pt was alert and oriented x3. SW explained role and wrote phone number on white board. SW provided DPOA/advanced directive ppw and encouraged pt to provide the hospital with a copy once complete. SW provided [facility] Discharge Planning Checklist and encouraged pt to contact SW for any discharge planning questions. Pt lives in a halfway community ([facility]) in [facility] with her spouse Rocky Cervantes ([phone]). Pt owns a cane but does not use it for ambulation. Pt is independent with all ADLs. Pt has no hx of a SNF or . Pt discussed in multidisciplinary rounds. Per multidisciplinary rounds, pt is not medically stable for discharge, anticipate 2-3 more days chemo/oncology. No SW needs identified at this time, no MD orders received. A: Pt is independent at baseline and has capacity for self-care. Pt lives in a ADA accessible apartment with elevator access. P: Pt anticipated to discharge home with spouse to transport via POV. No SW needs identified at this time. No MD orders received. SW will continue to follow for needs. COLBY Gracia Addendum: 09/25/16 at 1755 by ADRY JASON Amended: Links added.
--- NOTE | 2016-09-25 18:32 | NUR ---
Pain/Activity Pt having increasing pain and burning/stabbing sensation during shift. MD aware and Dilaudid changed to q3. K-pad obtained. Pt had decreased appetite, but did drink glucerna shake and they were added to all meals. 1L NS given in preparation for chemo. Call light in reach, bed in low, care continues.
[2016-09-25] MEDS: Carbidopa-Levodopa 25-250 mg Tablet PO SCH (19:45)
[2016-09-26] VITALS (10 sets, daily range): BP systolic 124–185; BP diastolic 61–75; PULSE 65–76; RESP 16–18; O2SAT 94–100
[2016-09-26] MEDS: Ondansetron 2 mg/mL 2 mL Inj IVPUSH PRN ×2 (02:03→17:11)
[2016-09-26] MEDS: HYDROmorphone 1 mg/mL Inj IVPUSH PRN ×4 (02:04→21:36)
--- NOTE | 2016-09-26 03:18 | NUR ---
Pain Pt reporting abdominal pain increased at beginning of shift 09/15, pt is now receiving Dilaudid q3 hrs and pt reports this to be more effective to help control pain. Pt also reporting nausea and has needed Zofran x2 so far this shift. No emesis noted. Pt up to BR, independent and steady on feet. Pt reports passing lots of gas but still no BM.
[2016-09-26 05:17] LABS: BASOPHILS % (AUTO) 0.6 % (0-3); EOSINOPHILS % (AUTO) 1.6 % (0-5); MONOCYTES % (AUTO) 9.9 % (4-12); Mean Corpuscular Hemoglobin 30.3 pg (27.0-35.0); Mean Corpuscular Volume 90.2 fL (81-100); NEUTROPHILS % (AUTO) 76.2 % (40-74); Platelet Count 301 bil/L (150-400)
[2016-09-26] MEDS: Pantoprazole 40 mg ER24 Tablet PO SCH (06:00)
[2016-09-26] MEDS ORDERED: Sodium Biphos-Phos 133 mL Enema RECTAL ONE (07:30)
[2016-09-26] MEDS: Diltiazem CD 240 mg ER24 Capsule PO SCH (08:29)
[2016-09-26] MEDS: ALPRAZolam 0.5 mg Tablet PO PRN ×3 (09:52→21:34)
[2016-09-26] MEDS: oxyCODONE-Acetamin 5-325 mg Tablet PO PRN ×2 (09:52→18:58)
--- NOTE | 2016-09-26 10:44 | NUR ---
Off unit Pt to PICC suite at this time via bed. Addendum: 09/26/16 at 1142 by SHANIQUE COLLINS RN returned from PICC suite at this time.
[2016-09-26] MEDS ORDERED: [UNRECOGNIZED DRUG - OTHER] XX ONE (11:40)
--- NOTE | 2016-09-26 11:45 | DRSVH ---
PROCEDURE: X-RAY PICC LINE PLACEMENT BY NURSE ([id number]) INDICATIONS: chemotherapy COMPARISON: None. FINDINGS: PICC was placed by the intravenous therapy team from the right side. Fluoroscopic spot fi lm demonstrates tip of PICC in the distal SVC. IMPRESSION: Tip of PICC lies within the distal SVC. Dictated by: Zoran Park M.D. on 09/26/2016 at 11:42 Approved by: Zoran Park M.D. on 09/26/2016 at 11:44
--- NOTE | 2016-09-26 11:59 | PCM.PNMED ---
Subjective Date of Service Sep 26, 2016 Subjective had bowel movement today again and abdominal pain improved. PICC line placed. Exam Vital Signs Vital Sign - Last Date Time Temp Pulse Resp B/P Pulse Ox O2 Delivery O2 Flow Rate FiO2 09/26/16 08:24 36.9 76 185/75 100 Room Air 09/26/16 04:22 16 Intake and Output 09/25/16 09/25/16 09/26/16 Cumulative From/Thru 15:00 23:00 07:00 09/23/16 16:35 - 09/26/16 04:22 Intake Total 2003 ml 600 ml 5398 ml Output Total 850 ml 1100 ml 3300 ml Balance 1153 ml -500 ml 2098 ml Intake Oral 1008 ml 600 ml 3508 ml IV Total 995 ml 1890 ml Output Urine Total 850 ml 1100 ml 3300 ml # Voids 7 # Bowel Movements 0 0 Exam Gen. patient is lying comfortably in hospital bed HEENT: Head is normocephalic atraumatic, Pupils equal and reactive, extraocular movements intact, Lungs clear to auscultation bilaterally Heart regular rate and rhythm without murmurs gallops or rubs Abdomen mild lower abdominal tenderness with suprapubic fullness. Without hepatosplenomegaly Extremities pulses are present dorsalis pedis posterior tibialis and radial. Skin is warm and dry there are no rashes, Psych alert and oriented to person place and time Neuro cranial nerves II through XII are grossly intact Lymph: There is no lymphadenopathy appreciated in the cervical supra infraclavicular regions : no luna IVs and Medications Medications Reviewed: Medications were reviewed in detail Lab and Diagnostics Result Diagram: 09/26/16 0443 09/26/16 0443 X-Rays, CTs and MRIs CT abd/pelvis 07/21/2016 IMPRESSION: 1. Slightly increased prominence of pancreatic tail cystic focus as above. Increased size of pancreatic tail lesion does raise concern for cystic neoplasm. 2. Interval development of soft tissue masses within the abdomen/pelvis as well as along the posterior aspect of the liver as described above. Given presence of enlarging cystic mass within the pancreas, findings are most concerning for metastatic disease. 3. Mild appearance of ascites within the lower pelvis particularly surrounding bowel loops. Dictated by: Jody Matthews M.D. on 07/21/2016 at 16:03 Approved by: Jody Matthews M.D. on 07/21/2016 at 16:25 ADDENDUM: The findings were discussed with Dr. Hackett 08/04/16 at 8:30 AM. In addition to the perihepatic focus identified adjacent to this appear aspect of the right kidney, there is a similar enhancing focus adjacent to the posterior right hepatic lobe measuring approximately 8 mm on series 2 image 17. Additionally, there is a low attenuation nodular contour along the superior right hepatic dome measuring up A. 15 mm, seen on series 2 image 10. As discussed, findings are concerning for neoplasm. Dictated by: Jody Matthews M.D. on 08/04/2016 at 9:13 PROCEDURE: CT CHEST, ABDOMEN AND PELVIS WTIH CONTRAST ([id number]) INDICATIONS: 75 year-old female with ovarian carcinoma and abdominal pain. Evaluate for bowel obstruction. IMPRESSION: 1. No evidence for bowel obstruction to explain abdominal pain. 2. Interval increased sizes of anterior omental lobulated mass, as well as bilateral adnexal mass lesions, consistent with disease progression in the setting of metastatic ovarian carcinoma. Additional tumor implants in the right hepatorenal recess and adjacent to the lateral right hepatic lobe have not significantly changed in size. 3. 12 x 8 mm lesion within the pancreatic tail has progressively increased in size since 2006, suggesting small cystic neoplasm as well. 4. Large retrocardiac hiatal hernia again noted. 5. Moderate sigmoid colon diverticulosis. Dictated by: Johnnie Roberto M.D. on 09/23/2016 at 19:41 12-lead ECG NSR Assessment & Plan Chely is a pleasant 75 yo lady with past medical history of hypothyroidism, Parkinson's disease, HLD,HTN [facility] [place] by Dr Smith for direct admission due to progressively worsening lower abdominal pain of 3 months. 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 ruled out bowel obstruction -CT as above -pain control with Dilaudid iv q3h. Pain not controlled with morphine # hypothyroidism, -Continue home Synthroid #Parkinson's disease, -Continue home medication #HLD, -Continue home statin #HTN -Continue diltiazem full code per patient and loveonx for ppx Patient admitted under inpatient status with expected length of stay > 2 midnights for severity of present symptoms, complexities of treatment plan and risk for adverse events disposition:3-4 days pending chemotherapy VTE Mechanical Devices: Intermittant Pneumatic CD Resuscitation Status: CPR: Attempt Resuscitation Dom Villalpando MD Sep 26, 2016 11:59
[2016-09-26] MEDS ORDERED: 0.9% Sodium Chloride 500 ML IV ONE (13:00)
[2016-09-26] MEDS ORDERED: Palonosetron 0.05 mg/mL 5 mL Inj IV ONE (13:15)
[2016-09-26] MEDS ORDERED: 0.9% Sodium Chloride 250 ML ONE (13:25)
[2016-09-26] MEDS ORDERED: DEXTROSE 5% IV ONE ×2 (13:30→14:00)
[2016-09-26] MEDS ORDERED: DEXAMETHASONE IV ONE (13:30)
[2016-09-26] MEDS ORDERED: PACLITAXEL IV ONE (14:00)
[2016-09-26] MEDS ORDERED: CARBOPLATIN IV ONE (15:30)
[2016-09-26] MEDS ORDERED: SODIUM CHLORIDE 0.9% IV ONE (15:30)
--- NOTE | 2016-09-26 15:59 | CCS NOTE ---
[facility] [address] [address] MEDICAL ONCOLOGY OFFICE NOTE PATIENT: MARBIN THOMAS : 1940 MR#: [id number] DATE: 09/23/2016 JOB ID: [id number] DATE: SUBJECTIVE: The patient was seen at bedside with her in the room. I also spoke with Dr. Villalpando with the hospitalist team yesterday. The patient was doing somewhat better. Has had small volumes of bowel movements with enemas but this morning he has again increasing abdominal pain and bloating in the lower abdomen. No vomiting, no fever. A PICC line is supposed to be inserted this morning. IMAGING: CT of chest, abdomen, and pelvis with contrast performed on September 23, 2016, reviewed in comparison to CT scan of July 21. Shows no evidence of bowel obstruction or perforation but evidence of expectedly disease progression of the known mass lesions in the peritoneal cavity and adnexal masses in the pelvis. For example, the omental mass close to the anterior abdominal wall measures now 5.9 x 3 cm as compared to 4.3 x 2.4 cm two months ago. Bilateral heterogeneous adnexal masses have also increased in size compared to July 21. Small lesion behind the right hepatorenal recess measures 1.8 cm, not much changed. LABS: White count 10.0, hemoglobin 11.5, platelets 301. Chemistry shows normal electrolytes, creatinine 0.88. normal LFTs. On exam, the patient is afebrile. Blood pressure is elevated at around 160/80. O2 sat 98% on room air. The patient appears uncomfortable due to bloating and discomfort with bowel movement attempt. She had an enema. ASSESSMENT AND PLAN: A 75-year-old lady with multiple intraperitoneal mass lesions, predominantly in the pelvis in the adnexal location, as well as in the sabas-abdominal cavity with percutaneous biopsy, supportive for ovarian cancer/primary peritoneal carcinoma. For details, please refer to my consult note from the office visit on September 23 that led to the hospitalization. Repeat CT scan was done urgently on September 23, to compare to the previous scan of July 21 with a protracted workup before she saw us in the clinic to make sure there is no catastrophic change in the bowel tract. As expected this CT scan shows increase in the size of the mass lesions, but there is no evidence of perforation or radiographic evidence of invasion to the bowel nor any bowel obstruction radiographically. The patient has been managed over the weekend with hydration and p.r.n. Dilaudid and enemas to facilitate her constipation. The pain is likely associated with discomfort and compression effect of the pelvic masses. The patient would not be a good candidate currently for up-front abdominal debulking surgery and neoadjuvant chemotherapy with carboplatin and Taxol is urgently required to get control over her disease and symptoms and improve tumor burden. PICC line is being placed this morning. I reviewed that with the patient and her and the first dose of carboplatin AUC of 5 and Taxol 80 mg/m2 will be administered later this afternoon. Next week, she will be due for Taxol alone on October 03. Depending on her clinical status, I am hopeful that she could be discharged later this week and receive the remaining of her chemotherapy as an outpatient, but that depends on her bowel status and pain control level.
[2016-09-26] MEDS ORDERED: Sodium Chloride LOK Flush 10 mL Syringe IVFLUSH PRN ×2 (16:30)
--- NOTE | 2016-09-26 17:23 | NUR ---
Chemo Taxol and Carboplatin admin after pre-meds, as ordered. Pt slept through most of infusions, woke at the end of Carboplatin with nausea. No emesis. Zofran and Xanax given. Oncologist at bedside, consulting with pt and family. Addendum: 09/26/16 at 1906 by SHANIQUE COLLINS RN Positive blood return confirmed in PICC line prior to each infusion.
[2016-09-26] MEDS: Polyethylene Glycol (PEG) 17 Gm Powder PO PRN (19:54)
[2016-09-26] MEDS: Carbidopa-Levodopa 25-250 mg Tablet PO SCH (20:01)
--- NOTE | 2016-09-26 22:50 | NUR ---
ANXIETY/ACTIVITY: Pt. resting in bed during initial nursing assessment, awake and very talkative, anxious and worried about her bowels. States she has been constipated and goes on to describes her previous BMs (small balls hard like rocks), states she had enema already but still needs to have more BMs. Gave Miralax. Also wants Xanax to help her sleep, states she takes that at home. Informed she was given Xanax and Percocet 2 hr ago and will gave some later on at HS. Pt. called me later on and requested pain meds and Xanax. Gave 0.5 mg of Dilaudid and 0.5 mg of Xanax, unable to give Percocet as pt. was given 1 tab 2 hr ago. Advised pt. not to get up independently during the night to prevent falling as she has been medicated with Xanax and Dilaudid. Pt. agreed with plan. Pt's standing at her bedside at this time. Pt. is A & O, vss. On going care.
[2016-09-27] MEDS: Ondansetron 2 mg/mL 2 mL Inj IVPUSH PRN ×2 (04:12→20:12)
[2016-09-27] MEDS: HYDROmorphone 1 mg/mL Inj IVPUSH PRN ×3 (04:23→20:15)
--- NOTE | 2016-09-27 04:25 | NUR ---
PAIN: Pt. woke up at about 4:15 c/o pain and nausea and crying. stating "its not worthy all the suffering", given a warm blanket, 8 mg of Zofran, 1 mg of IV Dilaudid and cool wash cloth for her forehead. Pt. resting in bed. On going care.
[2016-09-27 04:30] VITALS: BP 180/76; PULSE 74; RESP 17; O2SAT 96
[2016-09-27] MEDS: Pantoprazole 40 mg ER24 Tablet PO SCH (05:51)
[2016-09-27] MEDS: ALPRAZolam 0.5 mg Tablet PO PRN ×2 (05:52→12:02)
[2016-09-27] MEDS: oxyCODONE-Acetamin 5-325 mg Tablet PO PRN ×2 (05:52→10:50)
--- NOTE | 2016-09-27 06:18 | NUR ---
PAIN/NAUSEA/ANXIETY: Pt. slept most of the night after taking Xanax and IV Dilaudid until about 0415 then woke up in pain and crying. Stated she got up to the BSC and now is having a lot of pain and nausea, very anxious. Given 1 mg of IV Dilaudid and 8 mg of Zofran, spent time talking to pt. and giving comfort. The pain came down to 5/10, nausea resolved. Gave later 1 Percocet and 0.5 mg of Xanax and snacks. Pt. more calm now sitting up in bed eating her snacks. On going care.
[2016-09-27 07:44] LABS: BASOPHILS % (AUTO) 0.1 % (0-3); EOSINOPHILS % (AUTO) 0 % (0-5); MONOCYTES % (AUTO) 2.3 % (4-12); Mean Corpuscular Hemoglobin 29.9 pg (27.0-35.0); Mean Corpuscular Volume 88.7 fL (81-100); Platelet Count 284 bil/L (150-400)
[2016-09-27 08:07] LABS: Magnesium 2.1 mg/dL (1.6-2.6)
[2016-09-27 08:42] VITALS: BP 143/67; PULSE 71; RESP 18; O2SAT 94
[2016-09-27] MEDS: Diltiazem CD 240 mg ER24 Capsule PO SCH (08:44)
[2016-09-27] MEDS: Polyethylene Glycol (PEG) 17 Gm Powder PO PRN (08:44)
--- NOTE | 2016-09-27 09:26 | PCM.PNMED ---
Subjective Date of Service Sep 27, 2016 Subjective Tolerated chemotherapy well. No nausea or vomiting. High blood pressure noted. Exam Vital Signs Vital Sign - Last Date Time Temp Pulse Resp B/P Pulse Ox O2 Delivery O2 Flow Rate FiO2 09/27/16 08:42 36.7 71 18 143/67 94 Room Air Intake and Output 09/26/16 09/26/16 09/27/16 Cumulative From/Thru 15:00 23:00 07:00 09/23/16 16:35 - 09/27/16 06:12 Intake Total 1208 ml 0 ml 6606 ml Output Total 1880 ml 550 ml 5730 ml Balance -672 ml -550 ml 876 ml Intake Oral 490 ml 0 ml 3998 ml IV Total 718 ml 0 ml 2608 ml Output Urine Total 1880 ml 550 ml 5730 ml # Voids 2 9 # Bowel Movements 4 5 9 Exam Gen. patient is lying comfortably in hospital bed HEENT: Head is normocephalic atraumatic, Pupils equal and reactive, extraocular movements intact, Lungs clear to auscultation bilaterally Heart regular rate and rhythm without murmurs gallops or rubs Abdomen mild lower abdominal tenderness with suprapubic fullness. Without hepatosplenomegaly Extremities pulses are present dorsalis pedis posterior tibialis and radial. Skin is warm and dry there are no rashes, Psych alert and oriented to person place and time Neuro cranial nerves II through XII are grossly intact Lymph: There is no lymphadenopathy appreciated in the cervical supra infraclavicular regions : no luna IVs and Medications Medications Reviewed: Medications were reviewed in detail Lab and Diagnostics Result Diagram: 09/27/16 0725 09/27/16 0725 X-Rays, CTs and MRIs CT abd/pelvis 07/21/2016 IMPRESSION: 1. Slightly increased prominence of pancreatic tail cystic focus as above. Increased size of pancreatic tail lesion does raise concern for cystic neoplasm. 2. Interval development of soft tissue masses within the abdomen/pelvis as well as along the posterior aspect of the liver as described above. Given presence of enlarging cystic mass within the pancreas, findings are most concerning for metastatic disease. 3. Mild appearance of ascites within the lower pelvis particularly surrounding bowel loops. Dictated by: Jody Matthews M.D. on 07/21/2016 at 16:03 Approved by: Jody Matthews M.D. on 07/21/2016 at 16:25 ADDENDUM: The findings were discussed with Dr. Hackett 08/04/16 at 8:30 AM. In addition to the perihepatic focus identified adjacent to this appear aspect of the right kidney, there is a similar enhancing focus adjacent to the posterior right hepatic lobe measuring approximately 8 mm on series 2 image 17. Additionally, there is a low attenuation nodular contour along the superior right hepatic dome measuring up A. 15 mm, seen on series 2 image 10. As discussed, findings are concerning for neoplasm. Dictated by: Jody Matthews M.D. on 08/04/2016 at 9:13 PROCEDURE: CT CHEST, ABDOMEN AND PELVIS WTIH CONTRAST ([id number]) INDICATIONS: 75 year-old female with ovarian carcinoma and abdominal pain. Evaluate for bowel obstruction. IMPRESSION: 1. No evidence for bowel obstruction to explain abdominal pain. 2. Interval increased sizes of anterior omental lobulated mass, as well as bilateral adnexal mass lesions, consistent with disease progression in the setting of metastatic ovarian carcinoma. Additional tumor implants in the right hepatorenal recess and adjacent to the lateral right hepatic lobe have not significantly changed in size. 3. 12 x 8 mm lesion within the pancreatic tail has progressively increased in size since 2006, suggesting small cystic neoplasm as well. 4. Large retrocardiac hiatal hernia again noted. 5. Moderate sigmoid colon diverticulosis. Dictated by: Johnnie Roberto M.D. on 09/23/2016 at 19:41 12-lead ECG NSR Assessment & Plan Chely is a pleasant 75 yo lady with past medical history of hypothyroidism, Parkinson's disease, HLD,HTN was sent from cancer [facility] by Dr Smith for direct admission due to progressively worsening lower abdominal pain of 3 months. 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 ruled out bowel obstruction -CT as above -pain control with Dilaudid iv q3h. Pain not controlled with morphine # hypothyroidism, -Continue home Synthroid #Parkinson's disease, -Continue home medication #HLD, -Continue home statin #HTN -Continue diltiazem full code per patient and loveonx for ppx Patient admitted under inpatient status with expected length of stay > 2 midnights for severity of present symptoms, complexities of treatment plan and risk for adverse events disposition: Discharge 1-2 days i VTE Mechanical Devices: Intermittant Pneumatic CD Resuscitation Status: CPR: Attempt Resuscitation Dom Villalpando MD Sep 27, 2016 09:26
--- NOTE | 2016-09-27 10:26 | PCM.CONPAL ---
Date of Service Sep 27, 2016 Date of Hospital Admission: Sep 23, 2016 at 16:11 Date of Palliative Consult: Sep 27, 2016 Requesting Provider: Dom Villalpando MD Reason Palliative Care Consult: Pain Reason for Consultation Palliative Care received verbal order from Dr Villalpando 09/27/16 to assist with pain management. Patient admitted 09/23/16. Hospital Unit @time of consult: Orthopedic/Surgical Care (room 1003) Palliative Care Recommendation Summary of palliative recommendations: Symptom management (Pain/other): 1. Pain: located mainly in lower bladder/vaginal area. Can be aching, throbbing and escalate to sharp pain. She has had 9/10 pain in last 24 hours and best pain control was 5-6/10 pain in last 24 hours. Her goal would be no pain: 0/10. She describes herself as having a high pain threshold. a. review of MAR shows she needed 4.5mg IV dilaudid and 15mg oxycodone ( in form of oxycodone/APAP, 5/325 tablets) in the last 24 hours. This is equal to 112.5mg oral morphine. She says that both morphine and hydrocodone have made her very nauseated in recent past. Recommend: trial dose of 10/325 oxycodone/APAP at lunchtime today. Will return to evaluate whether this is effective for better pain control. If so, will start scheduled dosing of 10/325. On return during afternoon rounds, pt did very well on 10/325 oxycodone/APAP (along with one xanax). She reported 2/10 pain and was sitting up in bed, smiling. We will start 10/324 oxycodone/APAP po TID scheduled for pt, discussed with her and her , who both agree with plan. Continue IV dilaudid and oxycodone/APAP 5/325 as needed in the meantime. Palliative will recheck pt comfort on these meds daily and prn. 2. Anxiety: she reports that 0.5mg xanax po three times a day was helpful to cut down the sharpness of her lower abdominal pain. She was not started on xanax until her cancer was diagnosed in April 2016. a.agree with reinstatement of home dosing: xanax 0.5 po TID. 3. Constipation: acute on chronic. This has been a long-standing problem, exacerbated by the start of opioid pain meds in April 2016. For years, she has used all sorts of laxatives prescribed by her PCPs and by GI specialists, and thinks that small amounts of lactulose at night worked well for her in past ( until a doctor stopped it). She is willing to try this again. a. start lactulose 20gm po q HS scheduled. Discussed with pt and counseled that if this works, we will send her home on scheduled nightly dose to prevent opiate induced constipation. b. add prn fleets mineral oil enema. Recommend sending home a RX of 3 enemas/week, to be used prn. DPOA/Advanced Directives/POLST: 1. Code Status is FULL CODE. 2. HCPOA: They have HCPOA paperwork and Chely thinks they will assign Vonnie, but no written paperwork completed yet. Family/emotional support: strong support from and children. Spiritual support: she is amish, but the exact quaker affiliation not yet clarified. Patient Goals: from discussions with her, she wants to continue weekly chemotherapy managed by Dr. Smith and trusts that he will "cure" her, as he "cured" her 's prostate cancer. Problems: End of Life Preferences just beginning to think about this possibility. Goals of Care continue chemotherapy, feels very confident being in the care of Dr. Smith. Disposition Anticipate probably back home with on September 29. Resuscitation Status Resuscitation Status: CPR: Attempt Resuscitation POLST Updates/Changes Previous POLST?: No . Pain: Moderate Symptom management: Anxiety, Constipation Pt History History of Present Illness Chely is a pleasant 75 yo lady with recent diagnosis of serous ovarian carcinoma and past medical history of hypothyroidism, Parkinson's disease, HLD, HTN who was sent from [facility] by Dr Smith for direct admission due to progressively worsening dull, acing lower abdominal pain of 3 months. She was seen by gastroenterology 2 month ago ,CT revealed multiple small masses and workup for primary continued.EGD unremarkable. Colonoscopy unable to pass past sigmoid. Main focus was on pancreatic tail due to known pancreatic tail cystic mass. EUS also done. She was also referred to Marcelle Cooley for further workup. Biopsy done 09/08/16 revealed high-grade serous carcinoma with elevated CEA 125. Three days ago she came to [facility] accompanying her who is also a patient of Dr. Smith, for 's follow-up of prostate cancer. She told Dr Smith she has been having worse lower abdominal pain with constipation. She was seen today for urgent oncology consult. Sent for direct admission due to worsening lower abdominal pain and constipation to rule out partial obstruction and to start chemotherapy on Monday. She also lost around 20 pounds in 3-4 months. She has lifelong chronic constipation which has progressively worsened in the last 3 months. Hospital Course: Mrs. Banks was admitted for pain control and rule out of partial bowel obstruction on 09/23/16. Over the next few days, scans showed progression of disease, but bowel obstruction was ruled out. She was, however, full of stool on scan. She has received several forms of cathartic laxatives. Currently IV dilaudid and oral oxycodone are controlling pain, somewhat. On Hospital Day 5, Pall Care Team asked to assess and treat pain. Past Medical History Significant PMH Noted: Hypothyroidism. Anxiety. Mild Parkinson disease. Hyperlipidemia. Essential hypertension. History of cystitis. Dyspepsia. Large hiatal hernia. Surgical History Left ovariectomy at age 46 Hysterectomy Cervical spine surgery with metal prosthesis Left flank lipoma resection in May 2016 Family History Father in his 60s due to alcohol problem Mother of Parkinson's/dementia old age Daughter has melanoma No other family history of cancer Social History She lives in [facility] and is the primary caregiver of her 81 yo who has prostate cancer, heart disease s/p cardiac stents. They have three adult children: Sharath, Vonnie and Ousmane. Vonnie is their POA for their will and executor for their estate. They are snowbirds who go to [place], [place] usually December to May. 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 Hx Alcohol Use: No Hx Substance Use: No Hx Tobacco Use: No Smoking Status: Former Smoker. She lives in [facility] Medications Current Medications: Current Medications Hydromorphone HCl 0.5-1mg Q3H PRN IVPUSH Last administered on 09/27/16t 08:45; Admin Dose 1 MG; Start 09/25/16 at 20:30 Docusate Sodium 100 mg BID PRN PO Last administered on 09/27/16t 08:44; Admin Dose 100 MG; Start 09/26/16 at 07:30 Scheduled Ascorbic Acid (Vitamin C) 500 Mg Capsule.er 1,000 MG PO DAILY Carbidopa/Levodopa 25-250 mg (Carbidopa/Levodopa 25-250 mg) 1 Each Tablet 1 TABLET PO DAILY Cholecalciferol (Vitamin D3) (Vitamin D3) 1,000 Unit Tab.chew 1,000 UNIT PO DAILY Diltiazem ER (Diltiazem ER) 240 Mg Cap.er.24h 240 MG PO DAILY Docusate Calcium (Stool Softener) 240 Mg Capsule 100 MG PO HS PRN Levothyroxine (Levothyroxine) 88 Mcg Tablet 88 MCG PO DAILY Lovastatin (Lovastatin) 20 Mg Tablet 20 MG PO HS Magnesium Citrate (Magnesium Citrate) 100 Mg Tablet 500 MG PO DAILY Pantoprazole DR (Pantoprazole DR) 40 Mg Tablet.dr 40 MG PO DAILY Trazodone (Trazodone) 150 Mg Tablet 150 MG PO HS PRN Scheduled PRN Alprazolam (Alprazolam) 0.5 Mg Tablet 0.5 MG PO TID PRN PRN For Anxiety Ondansetron (Zofran) 4 Mg Tablet 4 MG PO TID PRN PRN PRN For Nausea oxyCODONE-Acetaminophen 5-325 mg (oxyCODONE-Acetaminophen 5-325 mg) 1 Each Tablet 1 TAB PO Q4H PRN PRN For Pain Objective Findings Exam Vital Sign - Last Date Time Temp Pulse Resp B/P Pulse Ox O2 Delivery O2 Flow Rate FiO2 09/27/16 08:42 36.7 71 18 143/67 94 Room Air Intake and Output 09/26/16 09/26/16 09/27/16 Cumulative From/Thru 15:00 23:00 07:00 09/23/16 16:35 - 09/27/16 06:12 Intake Total 1208 ml 0 ml 6606 ml Output Total 1880 ml 550 ml 5730 ml Balance -672 ml -550 ml 876 ml Intake Oral 490 ml 0 ml 3998 ml IV Total 718 ml 0 ml 2608 ml Output Urine Total 1880 ml 550 ml 5730 ml # Voids 2 9 # Bowel Movements 4 5 9 Objective General: pt describes discomfort, but is moving around the bed fairly well. Makes good eye contact. Neuro: nonfocal, speech is clear. alert and oriented x 4. Musculoskeletal: moves all four extremities, equal strength, no wasting of limbs. HEENT: unremarkable, no gross lesions, no scleral icterus. Neck: FROM Lungs: CTAB Cor: S1, S2, crescendo-decrescendo II-III/ murmur, nonradiating. [place] best at ICS 3, MCL Abd: soft, nontender, Positive bowel sounds Extremities: no edema. Lab/Diagnostics CT of chest, abdomen, and pelvis with contrast performed on September 23, 2016: compared to CT scan of July 21. Shows no evidence of bowel obstruction or perforation but evidence of expectedly disease progression of the known mass lesions in the peritoneal cavity and adnexal masses in the pelvis. The omental mass close to the anterior abdominal wall now measures 5.9 x 3 cm as compared to 4.3 x 2.4 cm two months ago. Bilateral heterogeneous adnexal masses have also increased in size compared to July 21. Small lesion behind the right hepatorenal recess measures 1.8 cm, not much changed. Time spent Total time 70 minutes; >50% face to face with patient and/or family, providing counselling regarding plans and recommendations, and in care coordination with his/her medical teams. Shruthi Dixon MD Sep 27, 2016 10:26
[2016-09-27] MEDS ORDERED: oxyCODONE-Acetamin 10-325 mg Tablet PO ONE (11:30)
--- NOTE | 2016-09-27 11:49 | NUR ---
Palliative Care Palliative Care received verbal order from Dr Villalpando 09/27/16 to assist with pain management. Patient admitted 09/23/16. Susan Woodall
[2016-09-27 13:01] VITALS: BP 153/50; PULSE 76; RESP 18; O2SAT 93
[2016-09-27] MEDS: ALPRAZolam 0.5 mg Tablet PO SCH ×2 (14:30→20:17)
--- NOTE | 2016-09-27 15:12 | NUR ---
NUTRITION ASSESSMENT: ASSESS: Pt is a 75yo F admitted from the cancer center for worsening abdomen pain. She was recently diagnosis of serous ovarian carcinoma. Chemo was started 09/26. Oncology is following. Palliative care is involved for pain management. Pt's PO during admit has been variable of 0-100% on a general diet. Pt reported that her appetite is much improved now. She reported that prior to admit she had no appetite, no desire to eat and persistent nausea. Pt's family reported that they basically had to beg her to eat. She reported that prior to diagnosis she was intentionally trying to lose wt. She reported that she weighed 178lbs and intentionally lost ~ 28lbs and then unintentionally lost ~20 more lbs over the last 3 months (~13% wt loss x3 months= severe wt loss). PMHX: hypothyroidism, anxiety, Parkinson's, HLD, HTN, cystitis, hiatal hernia. LABS: Reviewed. Glu 204, Alb 3.5 MEDS: Reviewed. christinafran GI: BMx5 09/27- pt complaining of chronic constipation SKIN: no major issues CURRENT WTS: 59.5kg, BMI 24kg/m2, admit wt 58.9kg, IBW: 50kg, UBW: ~150lbs (68.18kg). Reported 13% wt loss x3 months DIET: General, PO 0-100% EST. NEEDS: Ca Kcals: 1485-1785kcal/day (25-30kcal/kg) Pro: 60-90g/day (1.0-1.5g/kg) NUTRITION DIAGNOSIS: 1.) Moderate pro/kcal malnutrition in the context of chronic illness related to ovarian cancer as evidence by reported 13% wt loss x3 months, <75% of estimated energy requirements for >1month, persistent nausea and decreased appetite. NUTRITION INTERVENTION: 1.) Spoke with pt, pt's and pt's daughter about ways to increase kcal/pro when appetite is down. Discussed high kcal/pro foods to try and eating smaller more frequent meals. Discussed importance when feeling good to eat an overall healthy diet to keep strength up. Provided high kcal/pro recipe book, high kcal/pro nutrition therapy handout and nausea/vomiting handout. 2.) Discussed how [facility] has Oncology Dietitians and encouraged pt to request Dietitian Consult if she would like to speak with a dietitian again. Oncology Dietitian will follow pt. MONITOR / EVAL: PO, wt, GI, labs, POC, nutrition status, Will continue to monitor per high nutrition risk guidelines
--- NOTE | 2016-09-27 16:58 | NUR ---
Pain Palliative care consult for pain/constipation management. Percocet increased. Pt expresses satisfaction with new regimen.
[2016-09-27] MEDS ORDERED: oxyCODONE-Acetamin 10-325 mg Tablet PO SCH (17:30)
--- NOTE | 2016-09-27 18:13 | CCS NOTE ---
[facility] [address] [place] [id number] MEDICAL ONCOLOGY OFFICE NOTE PATIENT: MARBIN THOMAS : 1940 MR#: [id number] DATE: 09/23/2016 JOB ID: [id number] DATE: 09/27/2016 SUBJECTIVE: The patient was seen at bedside. Palliative Care has been consulted as well for pain management. She was yesterday still quite uncomfortable, with lower abdominal discomfort and pain in the pelvis, but also sense of bloating. She received her first dose of carboplatin and weekly Taxol yesterday without any incident. She seems to have had some more bowel movements. I personally reviewed the CAT scan with Dr. Kumar of Radiology from September 23 in regard to evaluating the source of the somewhat high level of pain compared to the findings of the CT scan. We did not see any evidence of micro perforation or any spinal issue. The omental mass lesions are mostly in the bilateral adnexal area and in the anterior omentum above the pelvis. The anterior central upper pelvic omental masses might be in communication with the peritoneum and causing pain. In addition, she had extensive amount of stool on the September 23 scan, without evidence of any impingement or obstruction of the bowel at least radiographically. Labs show a white count of 12.4, increased from the effect of dexamethasone received yesterday. Hemoglobin 11, platelets 284. Chemistry shows normal electrolytes, creatinine. OBJECTIVE: On exam she appears clearly better today, much more interactive and stable, carrying a conversation more comfortably. Minimal nausea, but no vomiting. Blood pressure 153/50, afebrile. ASSESSMENT AND PLAN: A 75-year-old lady with newly diagnosed ovarian cancer/primary peritoneal carcinoma with high-grade serous histology, yesterday receiving the first dose of palliative carboplatin and Taxol. Her CT scan of Monday was reviewed personally with Dr. Kumar. Today's is summarized above. I am noticing finally an improvement in her pain level. She had also quite a bit of obstipation which might have gradually improved since Monday given the fact that she did have some bowel passage. There was no evidence of impingement or extrinsic obstruction of the rectum, at least on the CT scan. I had a detailed family conference with her daughter as well, reviewing the current status. I am ordering a single dose of G-CSF with Granix tomorrow to prevent neutropenia in anticipation of her next dose of Taxol next Monday. I recommended a surgical consultation for planning of a portal catheter placement if possible. Once the port is placed, the PICC line can be then removed.
[2016-09-27 19:50] VITALS: BP 179/78; PULSE 81; RESP 17; O2SAT 95
[2016-09-27] MEDS: Lactulose 20 Gm/30 mL 30 mL Syrup PO SCH (20:17)
[2016-09-27] MEDS: Carbidopa-Levodopa 25-250 mg Tablet PO SCH (20:17)
[2016-09-28] MEDS: oxyCODONE-Acetamin 5-325 mg Tablet PO PRN (00:32)
--- NOTE | 2016-09-28 02:46 | NUR ---
PAIN/ANXIETY: Pt. Very anxious and c/o lower abdominal pain during initial assessment. Given 1 mg of IV Dilaudid and 0.5 mg of scheduled Xanax, also given 8 mg of IV Zofran. Effective, pt. slept for several hrs. then woke up c/o pain again, medicated with 1 Percocet, helpful pt. sleeping after Percocet given. A & O, vss. On going care.
[2016-09-28] MEDS: HYDROmorphone 1 mg/mL Inj IVPUSH PRN ×5 (03:14→22:27)
[2016-09-28] MEDS: Ondansetron 2 mg/mL 2 mL Inj IVPUSH PRN ×3 (03:16→19:41)
[2016-09-28 04:46] VITALS: BP 155/69; PULSE 70; RESP 17; O2SAT 95
--- NOTE | 2016-09-28 07:56 | PCM.PNMED ---
Subjective Date of Service Sep 28, 2016 Subjective Patient seen and examined. In pain, and discomfort due to "gas". Vitals noted. Exam Vital Signs Vital Sign - Last Date Time Temp Pulse Resp B/P Pulse Ox O2 Delivery O2 Flow Rate FiO2 09/28/16 04:46 36.3 70 17 155/69 95 Room Air Intake and Output 09/27/16 09/27/16 09/28/16 Cumulative From/Thru 15:00 23:00 07:00 09/23/16 16:35 - 09/28/16 04:45 Intake Total 1400 ml 800 ml 8806 ml Output Total 750 ml 6480 ml Balance 1400 ml 50 ml 2326 ml Intake Oral 1400 ml 800 ml 6198 ml IV Total 2608 ml Output Urine Total 750 ml 6480 ml # Voids 4 13 # Bowel Movements 1 0 10 Exam Gen. patient is uncomfortable. Lungs clear to auscultation bilaterally Heart regular rate and rhythm without murmurs gallops or rubs Abdomen mild lower abdominal tenderness with suprapubic fullness. Without hepatosplenomegaly. hyperactive bowel sounds Extremities pulses are present dorsalis pedis posterior tibialis and radial. Skin is warm and dry there are no rashes, Psych alert and oriented to person place and time Lab and Diagnostics Result Diagram: 09/27/16 0725 09/27/16 0725 X-Rays, CTs and MRIs CT abd/pelvis 07/21/2016 IMPRESSION: 1. Slightly increased prominence of pancreatic tail cystic focus as above. Increased size of pancreatic tail lesion does raise concern for cystic neoplasm. 2. Interval development of soft tissue masses within the abdomen/pelvis as well as along the posterior aspect of the liver as described above. Given presence of enlarging cystic mass within the pancreas, findings are most concerning for metastatic disease. 3. Mild appearance of ascites within the lower pelvis particularly surrounding bowel loops. Dictated by: Jody Matthews M.D. on 07/21/2016 at 16:03 Approved by: Jody Matthews M.D. on 07/21/2016 at 16:25 ADDENDUM: The findings were discussed with Dr. Hackett 08/04/16 at 8:30 AM. In addition to the perihepatic focus identified adjacent to this appear aspect of the right kidney, there is a similar enhancing focus adjacent to the posterior right hepatic lobe measuring approximately 8 mm on series 2 image 17. Additionally, there is a low attenuation nodular contour along the superior right hepatic dome measuring up A. 15 mm, seen on series 2 image 10. As discussed, findings are concerning for neoplasm. Dictated by: Jody Matthews M.D. on 08/04/2016 at 9:13 PROCEDURE: CT CHEST, ABDOMEN AND PELVIS WTIH CONTRAST ([id number]) INDICATIONS: 75 year-old female with ovarian carcinoma and abdominal pain. Evaluate for bowel obstruction. IMPRESSION: 1. No evidence for bowel obstruction to explain abdominal pain. 2. Interval increased sizes of anterior omental lobulated mass, as well as bilateral adnexal mass lesions, consistent with disease progression in the setting of metastatic ovarian carcinoma. Additional tumor implants in the right hepatorenal recess and adjacent to the lateral right hepatic lobe have not significantly changed in size. 3. 12 x 8 mm lesion within the pancreatic tail has progressively increased in size since 2006, suggesting small cystic neoplasm as well. 4. Large retrocardiac hiatal hernia again noted. 5. Moderate sigmoid colon diverticulosis. Dictated by: Johnnie Roberto M.D. on 09/23/2016 at 19:41 12-lead ECG NSR Assessment & Plan Chely is a pleasant 75 yo lady with past medical history of hypothyroidism, Parkinson's disease, HLD,HTN was sent from [facility] by Dr Smith for direct admission due to progressively worsening lower abdominal pain of 3 months. 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 Smith on board. #Leukocytosis - likely 2/2 to dexamethasone, no signs of infection, no fever # Abdominal pain and constipation, improving -due to cancer . ruled out bowel obstruction -CT as above -pain control with Dilaudid iv q3h. Pain not controlled with morphine, started on percocet scheduled - palliative care on board, appreciate recs # hypothyroidism, -Continue home Synthroid #Parkinson's disease, -Continue home medication #HLD, -Continue home statin #HTN -Continue diltiazem full code per patient and loveonx for ppx Patient admitted under inpatient status with expected length of stay > 2 midnights for severity of present symptoms, complexities of treatment plan and risk for adverse events disposition: Discharge 1-2 days i VTE Mechanical Devices: Intermittant Pneumatic CD Resuscitation Status: CPR: Attempt Resuscitation Time spent 35 mins Kali Faulkner MD Sep 28, 2016 07:53
[2016-09-28] MEDS: ALPRAZolam 0.5 mg Tablet PO SCH ×3 (08:14→21:03)
[2016-09-28] MEDS: Diltiazem CD 240 mg ER24 Capsule PO SCH (08:15)
[2016-09-28] MEDS: Pantoprazole 40 mg ER24 Tablet PO SCH (08:16)
[2016-09-28] MEDS ORDERED: oxyCODONE-Acetamin 10-325 mg Tablet PO SCH (08:19)
[2016-09-28 08:29] VITALS: BP 171/71; PULSE 69; RESP 18; O2SAT 97
--- NOTE | 2016-09-28 10:31 | PCM.PALLBR ---
Palliative Care Recommendation Summary of palliative recommendations: Symptom management (Pain/other): 1. Pain: located mainly in lower bladder/vaginal area. Can be aching, throbbing and escalate to sharp pain. She has had 10/10 pain in last 24 hours and best pain control was 5-6/10 pain in last 24 hours. Her goal would be no pain: 0/10. She describes herself as having a high pain threshold. a. review of MAR shows she needed 4mg IV dilaudid and 40mg oxycodone (in form of oxycodone/APAP,both 10 and 5/325 tablets) in the last 24 hours. This is equal to 140mg oral morphine and she needed only 112.5mg OME the day before. She says that both morphine and hydrocodone have made her very nauseated in recent past. Recommend: Stop 10/325 oxycodone/APAP. Start oxycodone ER (OxyContin) 20mg BID with first dose 10am today. Discussed with Dr. Smith, who agrees. Continue 5/325 oxycodone/APAP as breakthrough pain medication. Continue 0.5-1mg IV dilaudid for severe breakthrough pain. Discussed this plan with MERCEDEZ Lynn and Pharmacist on floor. 2. Anxiety: she reports that 0.5mg xanax po three times a day was helpful to cut down the sharpness of her lower abdominal pain. She was not started on xanax until her cancer was diagnosed in April 2016. a. Continue xanax 0.5 po TID. 3. Constipation: acute on chronic. This has been a long-standing problem, exacerbated by the start of opioid pain meds in April 2016. For years, she has used all sorts of laxatives prescribed by her PCPs and by GI specialists, and thinks that small amounts of lactulose at night worked well for her in past ( until a doctor stopped it). She is willing to try this again. a. start lactulose 20gm po q HS scheduled. Discussed with pt and counseled that if this works, we will send her home on scheduled nightly dose to prevent opiate induced constipation. b. add prn fleets mineral oil enema. Recommend sending home a RX of 3 enemas/week, to be used prn. Palliative will recheck pt comfort on these meds daily and prn. DPOA/Advanced Directives/POLST: 1. Code Status is FULL CODE. 2. HCPOA: They have HCPOA paperwork and Chely thinks they will assign daughter Vonnie, but no written paperwork completed yet. Family/emotional support: strong support from and children. Spiritual support: she is zoroastrian, but the exact alevism affiliation not yet clarified. Patient Goals: from discussions with her, she wants to continue weekly chemotherapy managed by Dr. Smith and trusts that he will "cure" her, as he "cured" her 's prostate cancer. Problems: End of Life Preferences just beginning to think about this possibility. Goals of Care continue chemotherapy, feels very confident being in the care of Dr. Smith. Disposition Anticipate probably back home with on September 29. Resuscitation Status Resuscitation Status: CPR: Attempt Resuscitation POLST Updates/Changes Previous POLST?: No Total time 65 minutes; >50% face to face with patient and/or family, providing counselling regarding plans and recommendations, and in care coordination with his/her medical teams. I also spent an additional [ ] minutes counseling for advanced care planning with the patient/the patients family/the surrogate decision maker. Palliative Brief Note Date of Service Sep 28, 2016 . Patient Identification: Chely is a pleasant 75 yo lady with recent diagnosis of serous ovarian carcinoma and past medical history of hypothyroidism, Parkinson's disease, HLD, HTN who was sent from [facility] by Dr Smith for direct admission due to worsening lower abdominal pain and constipation to rule out partial obstruction and to start chemotherapy on Monday. Of note, she has lifelong chronic constipation which has progressively worsened in the last 3 months. Hospital Course: Mrs. Banks was admitted for pain control and evaluation to rule out partial bowel obstruction on 09/23/16. Over the next few days, scans showed progression of disease, with lots of stool in colon, but no bowel obstruction. She has received several forms of cathartic laxatives as an inpatient with good results. Initially, IV dilaudid and oral oxycodone were controlling pain, somewhat. On Hospital Day 5 (09/27) Pall Care Team asked to assess and treat pain. Overnight 09/27-, her pain increased and more IV dilaudid used, despite the hope to try to convert her to oral pain medication in preparation for discharge home. We will try to transition her to long-acting pain medications by mouth today, if possible. Subjective: Pt complains of 10/10 pain, received both IV dilaudid and 10/325 Percocet this morning. Received 20mg Oxycodone ER at 1045a.m. and is now asleep at 13:30pm. Exam: General: in a.m., pt describes discomfort, and not moving in bed. Neuro: nonfocal, speech is clear. alert and oriented x 4. HEENT: unremarkable, no gross lesions, no scleral icterus. Neck: FROM Lungs: CTAB Cor: S1, S2, crescendo-decrescendo II-III/ murmur, nonradiating. Sampson best at ICS 3, MCL Abd: soft, nontender, Positive bowel sounds Musculoskeletal: moves all four extremities, equal strength, no wasting of limbs. Extremities: no edema. Shruthi Dixon MD Sep 28, 2016 10:31 Extremities: no edema. Shruthi Dixon MD Sep 28, 2016 10:31 Shruthi Dixon MD Sep 28, 2016 10:31
[2016-09-28] MEDS: oxyCODONE ER 20 mg ER12 Tablet PO SCH ×2 (10:43→21:03)
--- NOTE | 2016-09-28 11:16 | NUR ---
Social Work- Continued D/C Planning Data: EMR reviewed. Pt is on day 5 of hospitalization for pain management, hydration, constipation per H&P. Pt discussed in multidisciplinary rounds, pt is not medically ready for d/c. Pt to receive port a cath tomorrow. Palliative is following for pain management. and LOW VOLTAGE TECHNICIAN to discuss if pt will require HH services for Port management at d/c. No SW orders have been received at this time. Anticipate d/c in 1-2 days. SW met with pt at bedside to check in and offer emotional support. Pt appreciative and agreeable to conversation. No needs identified at this time, pt declined spiritual care support at this time but states that she is familiar with hospital manager building. Assessment: Pt who is independent with self-care at baseline but who may require HH after her port a cath placement. Plan: and LOW VOLTAGE TECHNICIAN to discuss if pt will require HH services for Port management at d/c. No SW orders have been received at this time. Pt who is independent with self-care at baseline but who may require HH after her port a cath placement. Alba Tavarez MSW
[2016-09-28 16:57] VITALS: BP 135/63; PULSE 83; RESP 18; O2SAT 95
--- NOTE | 2016-09-28 19:13 | CCS NOTE ---
[facility] [address], [address] [address] MEDICAL ONCOLOGY OFFICE NOTE PATIENT: MARBIN THOMAS : 1940 MR#: [id number] DATE: 09/23/2016 JOB ID: [id number] DATE: 09/28/2016 SUBJECTIVE: The patient received her G-CSF this morning as I had requested to prevent neutropenia. She was doing yesterday quite well but this morning had again another flare of pain. This afternoon, she appears again stabilized after initiation of IV Dilaudid and then starting her on long-acting oxycodone. OBJECTIVE: On exam, she is afebrile, appears more comfortable now. Did have a bowel movement. Her abdomen is not firm. No peripheral edema. ASSESSMENT: A 75-year-old lady with newly diagnosed ovarian cancer. Received the first dose of carboplatin and Taxol on Monday during this admission. I appreciate the hospitalist team contacting the surgical colleagues for a port placement. I spoke with Dr. Durand and this is being done tomorrow afternoon at which time the PICC line can be removed after the port is placed. Overall, I am pleased about her course and she appears more comfortable. I think it would be a good idea to have her on long-acting oxycodone which has been already started this morning per discussion we had with Dr. Lares with OxyContin 20 mg twice daily to manage the pain better chronically which I would then continue as an outpatient. If her status continues to improve like this, I am hopeful that she can be discharged home on Monday and come to the clinic on Monday for day eight of cycle one of Taxol. This was discussed with the family today as well.
[2016-09-28 19:35] VITALS: BP 144/72; PULSE 83; RESP 17; O2SAT 95
--- NOTE | 2016-09-28 20:48 | PCM.PNSURG ---
Subjective Visit Information: Reason for Visit Pain Management,Hydration,Constipation Surgery/Surgery Date Post-Op Day # Date of Admission: Sep 23, 2016 at 16:11 Hospital Day # Subjective: Port placement was requested today. PMH/medications reviewed. Pt is stable and has already started chemotherapy via PICC in R arm. Objective Vital Sign- Last 8 Hours Date Time Temp Pulse Resp B/P Pulse Ox O2 Delivery O2 Flow Rate FiO2 09/28/16 19:35 36.5 83 17 144/72 95 Room Air 09/28/16 16:57 36.5 83 18 135/63 95 Room Air Intake and Output- Last 8 Hour 09/28/16 Cumulative From/Thru 07:00 09/23/16 16:35 - 09/28/16 04:45 Intake Total 800 ml 8806 ml Output Total 750 ml 6480 ml Balance 50 ml 2326 ml Intake Oral 800 ml 6198 ml IV Total 2608 ml Output Urine Total 750 ml 6480 ml # Voids 13 # Bowel Movements 0 10 General: Alert, Oriented X3, Cooperative, No Acute Distress Lungs: Clear to Auscultation Heart: Regular Rate/Rhythm Result Diagram: 09/27/16 0725 09/27/16 0725 Assessment & Plan Impression Ovarian cancer Problems: Plan Port placement is scheduled for tomorrow afternoon approximately 2:30pm. NPO after midnight. Full H&P to follow Resuscitation Status: CPR: Attempt Resuscitation Regina Durand MD Sep 28, 2016 20:48
[2016-09-28] MEDS: Carbidopa-Levodopa 25-250 mg Tablet PO SCH (21:02)
[2016-09-28] MEDS: Lactulose 20 Gm/30 mL 30 mL Syrup PO SCH (21:02)
--- NOTE | 2016-09-28 23:44 | NUR ---
PAIN/NAUSEA/NPO: On initial assessment pt. resting in bed,c/o nausea and pain, Given 8 mg of IV Zofran, explained that she will receive Oxyconting for pain tonight at , given pain meds. Pt. fell asleep after given pain meds then wok up moaning in pain. Given 1 mg of IV Dilaudid, helpful, pt. went to sleep a little later. Pt. aware that she will be NPO after midnight tonight for OR at 14:30. Pt. stated that the came in to talk to her tonight reg. Portacath placement tomorrow . Pt. is a bit anxious requested Xanax. A & O, pleasant and cooperative with care.
[2016-09-29] VITALS (12 sets, daily range): BP systolic 119–166; BP diastolic 46–74; PULSE 78–84; RESP 9–17; O2SAT 93–100
[2016-09-29] MEDS: oxyCODONE-Acetamin 5-325 mg Tablet PO PRN ×2 (02:15→06:02)
--- NOTE | 2016-09-29 02:31 | NUR ---
BM/PAIN: Pt. had a BM tonight, hard balls, medium size(pt. very happy to have a BM). Given PO pain meds and IV Dilaudid PRN helpful for pain control. Pt. agreed to be awaken during the night for pain meds, she is afraid to wake up in pain. On going care.
[2016-09-29] MEDS: Ondansetron 2 mg/mL 2 mL Inj IVPUSH PRN ×2 (05:55→18:59)
[2016-09-29] MEDS: HYDROmorphone 1 mg/mL Inj IVPUSH PRN ×5 (05:57→23:18)
[2016-09-29] MEDS: Pantoprazole 40 mg ER24 Tablet PO SCH (05:58)
--- NOTE | 2016-09-29 06:02 | PCM.CONSUR ---
Subjective Date of Service: Sep 28, 2016 History of Present Illness Ms. Banks is a pleasant 75 year old female who has recently been diagnosed with serous carcinoma of a gynecologic primary. The surgery service has been asked to see the patient in consultation for port-a-cath placement. Ms. Banks reports that her diagnosis was made after she presented with several months of vague abdominal pain and a significant unintentional weight loss. She reports that she is currently feeling "ok" and that her abdominal pain has improved since being admitted. A right PICC line has been placed for induction of chemotherapy and she has tolerated this well so far. She denies any chest pain , palpitations, shortness of breath, nausea, dysphagia, or fevers/chills. With further questioning the patient denies any head or neck trauma or radiation in the past, and she has never broken a clavicle. She has had a cervical spine fusion through an anterior approach in 2011, but she does not think this has limited her neck mobility. She tells me she's never had a central line placed previously. Allergy Allergies: Coded Allergies: Sulfa (Sulfonamide Antibiotics) (Verified Allergy, Severe, RASH, 09/23/16) hydrocodone (Verified Allergy, Severe, GI UPSET, 09/23/16) Medications Blood Thinners: Aspirin Alprazolam (Alprazolam) 0.5 Mg Tablet 0.5 MG PO TID PRN PRN For Anxiety ( Reported) Last Taken: 0.25mg on 09/23/16 1500 Ascorbic Acid (Vitamin C) 500 Mg Capsule.er 1,000 MG PO DAILY (Reported) Last Taken: Unknown Dose on 09/23/16 1000 Carbidopa/Levodopa 25-250 mg ( Carbidopa/Levodopa 25-250 mg) 1 Each Tablet 1 TABLET PO DAILY (Reported) Last Taken: Unknown Dose on 09/22/16 2230 Cholecalciferol (Vitamin D3) ( Vitamin D3) 1,000 Unit Tab.chew 1,000 UNIT PO DAILY (Reported) Last Taken: Unknown Dose on 09/23/16 1000 Diltiazem ER (Diltiazem ER) 240 Mg Cap.er.24h 240 MG PO DAILY (Reported) Last Taken: Unknown Dose on 09/23/16 1000 Docusate Calcium (Stool Softener) 240 Mg Capsule 100 MG PO HS PRN (Reported) Last Taken: Unknown Dose on 09/22/16 2200 Levothyroxine (Levothyroxine) 88 Mcg Tablet 88 MCG PO DAILY (Reported) Last Taken: Unknown Dose on 09/23/16 1000 Lovastatin (Lovastatin) 20 Mg Tablet 20 MG PO HS (Reported) Last Taken: Unknown Dose on 09/23/16 1000 Magnesium Citrate (Magnesium Citrate) 100 Mg Tablet 500 MG PO DAILY (Reported) Last Taken: Unknown Dose on 09/22/16 2200 Ondansetron (Zofran) 4 Mg Tablet 4 MG PO TID PRN PRN PRN For Nausea (Reported) Last Taken: Unknown Dose on 09/23/[address] (Pant[address]) 40 Mg Tablet.dr 40 MG PO DAILY (Reported) Last Taken: Unknown Dose on 09/23/16 1000 Trazodone (Trazodone) 150 Mg Tablet 150 MG PO HS PRN (Reported) Last Taken: 0.5 on 09/22/16 2300 oxyCODONE-Acetaminophen 5-325 mg (oxyCODONE- Acetaminophen 5-325 mg) 1 Each Tablet 1 TAB PO Q4H PRN PRN For Pain (Reported) Last Taken: 0.5 on 09/23/16 1230 Discontinued Medications Gabapentin (Gabapentin) 300 Mg Capsule 300 MG PO TID (Reported) Hydrochlorothiazide (Hydrochlorothiazide) 25 Mg Tablet 25 MG PO DAILY (Reported ) Nitrofurantoin Macrocrystal (Nitrofurantoin Macrocrystal) 100 Mg Capsule 100 MG PO QID (Reported) [place]-3 Fatty Acids ([place]-3) 1,000 Mg Capsule 1,000 MG PO DAILY (Reported) Past Surgical History Surgeries: Yes Patient/Family Past Surgical: Positive for:: Accept Blood Products?, Anesthesia Reactions, Denies:: Blood Transfuse Reaction, Blood Transfusions, Malignant Hyperthermia Additional Information 2012: C5-6, C6-7 anterior cervical diskectomy and fusion with donor bone graft, C5-7 anterior plating. Social History Hx Alcohol Use: No Hx Substance Use: No Hx Tobacco Use: No PMH HEENT History History of ENT Problems?: Yes HEENT History: Positive for:: Cataracts (Bilat Extractions) Dysphagia Glaucoma Denies:: Abnormal Airway Difficult Intubation Hearing Problem Cardiovascular History History of Heart Problems?: Yes Cardiovascular History: Positive for:: Hypertension Denies:: AICD Atrial Fibrillation Chest Pain Congestive Heart Failure Edema Heart Murmur Irregular Heartbeat Pacemaker Rheumatic Fever Thrombophlebitis Valvular Heart Disease Respiratory History of Respiratory Problem: No Respiratory History: Denies:: Asthma COPD Dyspnea Emphysema Hemoptysis Tuberculosis Use of C-PAP Machine Neurological History Hx Neurologic Problems?: No Neurological History: Positive for:: Parkinson's Disease Denies:: Alzheimer's Disease CVA Dementia Dizziness Headaches Seizures Gastrointestinal History HX of GI Problems?: Yes Gastrointestinal History: Positive for:: Heartburn Hiatal Hernia Denies:: Cirrhosis Diverticulitis Gastroesphageal Reflux Hepatitis Rectal Bleeding Genitourinary History Hx of Gu Problems?: No Genitourinary History: Denies: Kidney Stones Urinary Tract Infection Female/Male History Reproductive History Female: Positive for: Endometriosis Denies: Currently ? (barbra) Pelvic Inflammatory DX Problems with Breasts? Skin History Skin History: Denies:: History Skin Disorders? Pressure Ulcers Musculoskeletal History Hx Musculoskeletal Problems?: Yes Musculoskeletal History: Denies:: Back Injury Joint Replacement Musculoskeletal Trauma Psycho Social History Hx of Psycho/Social Problems?: Yes Psycho Social History: Positive for:: Anxiety Hx Depression Denies:: Bipolar Disorder Suicide Attempt Other History Hx Any Other Health Problems?: Yes Other History: Positive for:: Cancer Hospitalization (Neck, fat deposit removed) Thyroid Disease Denies:: Endocrine Disease Diabetes: No Social History Hx Alcohol Use: NoHx Substance Use: NoHx Tobacco Use: No Smoking Status: Former Smoker Objective Exam Vital Signs & I/O Vital Sign- Last 8 Hours Date Time Temp Pulse Resp B/P Pulse Ox O2 Delivery O2 Flow Rate FiO2 09/29/16 04:35 36.5 81 17 126/66 99 Room Air Intake and Output- Last 8 Hour 09/29/16 Cumulative From/Thru 07:00 09/23/16 16:35 - 09/29/16 00:40 Intake Total 9243 ml Output Total 6630 ml Balance 2613 ml Intake Oral 6635 ml IV Total 2608 ml Output Urine Total 6630 ml # Voids 13 # Bowel Movements 11 Result Diagram: 09/27/16 0725 09/27/16 07 Review of Systems: Constitutional: Negative, except as otherwise mentioned in the history above. Ophthalmologic: Negative, except as otherwise mentioned in the history above. Cardiovascular: Negative, except as otherwise mentioned in the history above. Respiratory: Negative, except as otherwise mentioned in the history above. Gastrointestinal: Negative, except as otherwise mentioned in the history above. Genitourinary: Negative, except as otherwise mentioned in the history above. Musculoskeletal: Negative, except as otherwise mentioned in the history above. Neurological: Negative, except as otherwise mentioned in the history above. Psychiatric: Negative, except as otherwise mentioned in the history above. Hematologic/Lymphatic: Negative, except as otherwise mentioned in the history above. Allergic/Immunologic: Negative, except as otherwise mentioned in the history above. H&P Surgical Exam Exam General: Alert, Oriented X3, Cooperative, No Acute Distress HEENT: Within normal limits & unremarkable, Other (Well healed transverse anterior neck scar. Good ROM. ) Respiratory: Clear to Auscultation Cardiac: Exam Unremarkable, Regular Rate/Rhythm, No Murmurs/Rubs/Gallops Abdomen: Soft, Other (Mildly tender diffusely) Musculoskeletal: Warm and well perfused. No pitting edema. Assessment & Plan Assessment 75F with recently diagnosed serous carcinoma of gynecologic origin in need of central access for chemotherapy. VTE Mechanical Devices: Intermittant Pneumatic CD Plan: I have discussed the technical and convalescent aspects of a port-a-cath placement. The risks, including bleeding, infection, and pneumothorax, were reviewed in detail. The patient reports complications with anesthesia in the past and we will have her discuss these with the anesthesia team pre- operatively. I do not believe her prior surgical history limits our ability to safely place a RIJ catheter, and this will be our first preference of port site. She has consented to proceed to the OR. She will remain NPO and we will find the earliest time for her in the OR on 09/29. Please do not hesitate to call with questions or concerns. Case was reviewed with Dr. Durand. Resuscitation Status: CPR: Attempt Resuscitation Attending Statement: I examined and interviewed this patient, and agree with the note as dictated above. I also discussed risks and benefits, including risks of infection, bleeding, and pneumothorax. She understands and elects to proceed. Regina Durand M.D. Umesh Daily MD Sep 29, 2016 06:02 Regina Durand MD Sep 29, 2016 15:34
[2016-09-29 06:11] LABS: BASOPHILS % (AUTO) 0.1 % (0-3); EOSINOPHILS % (AUTO) 0.5 % (0-5); MONOCYTES % (AUTO) 1.9 % (4-12); Mean Corpuscular Hemoglobin 29.8 pg (27.0-35.0); Mean Corpuscular Volume 90.5 fL (81-100); NEUTROPHILS % (AUTO) 93.6 % (40-74); Platelet Count 260 bil/L (150-400)
[2016-09-29] MEDS: ALPRAZolam 0.5 mg Tablet PO SCH ×3 (07:27→18:59)
[2016-09-29] MEDS: oxyCODONE ER 20 mg ER12 Tablet PO SCH ×2 (07:28→19:27)
--- NOTE | 2016-09-29 08:14 | PCM.PNMED ---
Subjective Date of Service Sep 29, 2016 Subjective Patient said her pain is much better controlled today. Leukocytosis noted. She denies fever or chills. Denies shortness of breath or cough. Denies cloudy or foul smelling urine. Vitals stable. Exam Vital Signs Vital Sign - Last Date Time Temp Pulse Resp B/P Pulse Ox O2 Delivery O2 Flow Rate FiO2 09/29/16 04:35 36.5 81 17 126/66 99 Room Air Intake and Output 09/28/16 09/28/16 09/29/16 Cumulative From/Thru 15:00 23:00 07:00 09/23/16 16:35 - 09/29/16 06:05 Intake Total 437 ml 0 ml 9243 ml Output Total 150 ml 600 ml 7230 ml Balance 287 ml -600 ml 2013 ml Intake Oral 437 ml 0 ml 6635 ml IV Total 2608 ml Output Urine Total 150 ml 600 ml 7230 ml # Voids 13 # Bowel Movements 1 1 12 Exam Gen. patient is comfortable. Lungs clear to auscultation bilaterally Heart regular rate and rhythm without murmurs gallops or rubs Abdomen mild lower abdominal tenderness with suprapubic fullness. Without hepatosplenomegaly. hyperactive bowel sounds Extremities pulses are present dorsalis pedis posterior tibialis and radial. Skin is warm and dry there are no rashes, Psych alert and oriented to person place and time Lab and Diagnostics Result Diagram: 09/29/16 0548 09/29/16 0548 X-Rays, CTs and MRIs CT abd/pelvis 07/21/2016 IMPRESSION: 1. Slightly increased prominence of pancreatic tail cystic focus as above. Increased size of pancreatic tail lesion does raise concern for cystic neoplasm. 2. Interval development of soft tissue masses within the abdomen/pelvis as well as along the posterior aspect of the liver as described above. Given presence of enlarging cystic mass within the pancreas, findings are most concerning for metastatic disease. 3. Mild appearance of ascites within the lower pelvis particularly surrounding bowel loops. Dictated by: Jody Matthews M.D. on 07/21/2016 at 16:03 Approved by: Jody Matthews M.D. on 07/21/2016 at 16:25 ADDENDUM: The findings were discussed with Dr. Hackett 08/04/16 at 8:30 AM. In addition to the perihepatic focus identified adjacent to this appear aspect of the right kidney, there is a similar enhancing focus adjacent to the posterior right hepatic lobe measuring approximately 8 mm on series 2 image 17. Additionally, there is a low attenuation nodular contour along the superior right hepatic dome measuring up A. 15 mm, seen on series 2 image 10. As discussed, findings are concerning for neoplasm. Dictated by: Jody Matthews M.D. on 08/04/2016 at 9:13 PROCEDURE: CT CHEST, ABDOMEN AND PELVIS WTIH CONTRAST ([id number]) INDICATIONS: 75 year-old female with ovarian carcinoma and abdominal pain. Evaluate for bowel obstruction. IMPRESSION: 1. No evidence for bowel obstruction to explain abdominal pain. 2. Interval increased sizes of anterior omental lobulated mass, as well as bilateral adnexal mass lesions, consistent with disease progression in the setting of metastatic ovarian carcinoma. Additional tumor implants in the right hepatorenal recess and adjacent to the lateral right hepatic lobe have not significantly changed in size. 3. 12 x 8 mm lesion within the pancreatic tail has progressively increased in size since 2006, suggesting small cystic neoplasm as well. 4. Large retrocardiac hiatal hernia again noted. 5. Moderate sigmoid colon diverticulosis. Dictated by: Johnnie Roberto M.D. on 09/23/2016 at 19:41 12-lead ECG NSR Assessment & Plan Chely is a pleasant 75 yo lady with past medical history of hypothyroidism, Parkinson's disease, HLD,HTN was sent from [facility] by Dr Smith for direct admission due to progressively worsening lower abdominal pain of 3 months. # Leukocytosis - in setting of no fever or obvious signs of infection - considering recent chemo, risk of infection high - PCT, CXR, Urinalysis, BCx ordered - Discussed with Dr. Jarquin, who discussed with Dr. 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 Smith on board. # Abdominal pain and constipation, improving -due to cancer . ruled out bowel obstruction -CT as above -pain better controlled with current management : ER (OxyContin) 20mg BID,5/325 oxycodone/APAP and IV dilaudid for breakthrough - palliative care on board, appreciate recs # hypothyroidism, -Continue home Synthroid #Parkinson's disease, -Continue home medication #HLD, -Continue home statin #HTN -Continue diltiazem full code per patient and loveonx for ppx Patient admitted under inpatient status with expected length of stay > 2 midnights for severity of present symptoms, complexities of treatment plan and risk for adverse events disposition: Discharge 1-2 days i VTE Mechanical Devices: Intermittant Pneumatic CD Resuscitation Status: CPR: Attempt Resuscitation Time spent 35 mins Kali Faulkner MD Sep 29, 2016 08:14
[2016-09-29] MEDS: Diltiazem CD 240 mg ER24 Capsule PO SCH (09:02)
--- NOTE | 2016-09-29 09:19 | DRSVH ---
PROCEDURE: X-RAY CHEST, TWO VIEWS ([id number]) INDICATIONS: leukocytosis TECHNIQUE: 2 views of the chest were acquired. COMPARISON: [facility], CR, CHEST 1VW (PORTABLE), 07/26/2014, 17:25. [facility], CR, CHEST 2VW, 06/22/2012, 10:55. FINDINGS: Surgical changes and devices: Anterior fusion plate at the low cervical spine is unchanged, only part ially visualized. PICC line from right sided approach extends into the azygos arch. The superior ve na cava. Lungs and pleura: No pleural effusions or pneumothorax. Lungs are clear. Mediastinum: Mediastinal contours are normal except for a small to moderate hiatal hernia behind the heart, smaller than that seen in 2015. Heart size is normal. Bones and chest wall: No suspicious bony abnormalities. Soft tissues appear unremarkable. IMPRESSION: Source of leukocytosis is not found. PICC line from right sided approach appears in norm al position. Reduced size of a previously present hiatal hernia behind the heart. Partially visuali zed cervical fusion plate stable over time. Dictated by: Zoran Park M.D. on 09/29/2016 at 9:16 Approved by: Zoran Park M.D. on 09/29/2016 at 9:17
[2016-09-29] MEDS ORDERED: Dexamethasone 4 mg/mL Inj ONE (12:40)
[2016-09-29] MEDS ORDERED: Propofol 10,000 mCg/mL 20 mL Inj ONE (12:40)
[2016-09-29] MEDS ORDERED: Glycopyrrolate 0.2 MG/ML 1mL Inj ONE (12:40)
[2016-09-29] MEDS ORDERED: Ondansetron 2 mg/mL 2 mL Inj ONE (12:40)
[2016-09-29] MEDS ORDERED: fentaNYL-PF 50 mCg/mL 2 mL Inj ONE (12:40)
[2016-09-29] MEDS ORDERED: Phenylephrine/NS 100 mCg/mL 10 mL Syringe IVPUSH ONE (12:40)
[2016-09-29 12:41] LABS: BASOPHILS % (AUTO) 0.2 % (0-3); EOSINOPHILS % (AUTO) 0.4 % (0-5); MONOCYTES % (AUTO) 2.3 % (4-12); Mean Corpuscular Hemoglobin 30.4 pg (27.0-35.0); Mean Corpuscular Volume 89.9 fL (81-100); NEUTROPHILS % (AUTO) 93.3 % (40-74); Platelet Count 274 bil/L (150-400)
[2016-09-29] MEDS: 0.9% Sodium Chloride 1,000 ML IV SCH (13:29)
--- NOTE | 2016-09-29 14:02 | PCM.HPANE ---
Patient Data Date of Service: Sep 29, 2016 Surgeon Admitting Provider:Dom Villalpando MD Attending Provider:Kali Faulkner MD Primary Care Physician:Lida Lynn DO Other Provider: Reason for Visit Pain Management,Hydration,Constipation PAIN MANAGEMENT,HYDRATION,CONSTIPATION Ht/WT & BMI Height (Feet): 5 Height (Inches): 2.00 Weight (Kilograms): 59.400 Body Mass Index 23.90 Allergies Coded Allergies: Sulfa (Sulfonamide Antibiotics) (Verified Allergy, Severe, RASH, 09/23/16) hydrocodone (Verified Allergy, Severe, GI UPSET, 09/23/16) Past Anesthesia History Anesthesia History: Positive for:: Anesthesia Reactions (reports she "flat- lined" during anesthesia for ACDF in past, unable to provide further details), Denies:: Abnormal Airway, Difficult Intubation, Fam Anesthesia Reaction, Fam Malignant Hypertherm, Malignant Hyperthermia Diabetes History Hx Diabetes?: No MRSA MRSA: No Medications Reported Medications Pantoprazole DR 40 Mg Tablet.dr40 Mg PO DAILY Ref 0 09/23/16 Ondansetron (Zofran)4 Mg Tablet4 Mg PO TID PRN PRN For Nausea 09/23/16 Alprazolam 0.5 Mg Tablet0.5 Mg PO TID PRN For Anxiety Ref 0 09/23/16 Magnesium Citrate 100 Mg Cqkakn771 Mg PO DAILY 09/23/16 oxyCODONE-Acetaminophen 5-325 mg 1 Each Tablet1 Tab PO Q4H PRN For Pain Ref 0 09/07/16 Cholecalciferol (Vitamin D3) (Vitamin D3)1,000 Unit Tab.chew1,000 Unit PO DAILY 08/11/16 Ascorbic Acid (Vitamin C)500 Mg Capsule.er1,000 Mg PO DAILY 08/11/16 Trazodone 150 Mg Ruaybl287 Mg PO HS PRN Ref 0 08/11/16 Docusate Calcium (Stool Softener)240 Mg Ewrthxm810 Mg PO HS PRN 08/11/16 Lovastatin 20 Mg Bzatsk54 Mg PO HS #30 TABLET Ref 0 08/11/16 Levothyroxine 88 Mcg Duzkkk31 Mcg PO DAILY Ref 0 08/11/16 Diltiazem ER 240 Mg Cap.er.43q314 Mg PO DAILY Ref 0 08/11/16 Carbidopa/Levodopa 25-250 mg 1 Each Tablet1 Tablet PO DAILY 08/11/16 Discontinued Reported Medications Nitrofurantoin Macrocrystal 100 Mg Heskogi216 Mg PO QID Ref 0 09/07/16 Jasper-3 Fatty Acids (Jasper-3)1,000 Mg Capsule1,000 Mg PO DAILY 08/11/16 Hydrochlorothiazide 25 Mg Mhhulu22 Mg PO DAILY 30 Days Ref 0 08/11/16 Gabapentin 300 Mg Mngxvyv366 Mg PO TID Ref 0 08/11/16 History History of ENT Problems?: Yes HEENT History: Positive for:: Cataracts (Bilat Extractions) Dysphagia Glaucoma Denies:: Abnormal Airway Difficult Intubation Hearing Problem Denture Type: Full- Upper Full- Lower Teeth Condition: No Teeth Hx of Heart Problems?: Yes Cardiovascular History: Positive for:: Hypertension Denies:: AICD Atrial Fibrillation Chest Pain Congestive Heart Failure Edema Heart Murmur Irregular Heartbeat Pacemaker Rheumatic Fever Thrombophlebitis Valvular Heart Disease Hx of Respiratory Problem?: No Respiratory History: Denies:: Asthma COPD Dyspnea Emphysema Hemoptysis Tuberculosis Use of C-PAP Machine Hx Neurologic Problems?: No Neurological History: Positive for:: Parkinson's Disease Denies:: Alzheimer's Disease CVA Dementia Dizziness Headaches Seizures Hx of GI Problems?: Yes Hx of Problems?: No Genitourinary History: Denies:: Kidney Stones Urinary Tract Infection Female Hx: Positive for:: Endometriosis Denies:: Currently (barbra) Pelvic Inflammatory Problems with Breasts? Skin History: Denies:: History Skin Disorders? Pressure Ulcers Hx Musculoskeletal Problems?: Yes Musculoskeletal History: Denies:: Back Injury Joint Replacement Musculoskeletal Trauma Hx of Psycho/Social Problems?: Yes Psycho Social History: Positive for:: Anxiety Hx Depression Denies:: Bipolar Disorder Suicide Attempt Hx Surgeries?: Yes Hx Any Other Health Problems?: Yes Other History: Positive for:: Cancer Hospitalization (Neck, fat deposit removed) Thyroid Disease Denies:: Endocrine Disease History Blood Transfusions: Positive for:: Accept Blood Products? Denies:: Blood Transfuse Reaction Blood Transfusions Hx Diabetes: No Hx Alcohol Use: NoHx Substance Use: No Smoking Status: Former Smoker Have You Smoked inLast 12 mo: No Stop/Bang Treated for Sleep Apnea?: No Do You Have a CPAP Machine?: No S-Snoring: Do You Snore Loudly: No T-Tired: feel tired, fatigued: Yes O-Obsered: Observed not breath: No P-Blood Pressure: treated: Yes B- Body Mass Index > 35 kg/m2: No A- Age over 50: Yes N- Neck Large Circumference: No G- Gender Male: No KRYSTLE Total Score: 2 Risk Assessment Category Category 1A: Patient has history of documented sleep apnea, and HAS NOT received any narcotic, sedative or anesthesia administration during this stay. Category 1B: Patient has history of documented sleep apnea, and HAS received any narcotic , sedative or anesthesia administration during this stay Category 2: Patient has SUSPECTED Obstructive Sleep Apnea, and HAS received any narcotic , sedative or anesthesia administration during this stay. Category 3: Patient has SUSPECTED Obstructive Sleep Apnea and HAS NOT received narcotic, sedative or anesthesia administration during this stay. Category 4: Outpatient in Procedural Areas with known sleep apnea or who screen positive for High Risk via the STOP/BANG questionnaire. Exam Exam Vital Signs Vital Signs Date Time Temp Pulse Resp B/P Pulse Ox O2 Delivery O2 Flow Rate FiO2 09/29/16 12:48 36.6 78 16 129/65 95 Room Air 09/29/16 08:27 36.5 82 16 131/65 99 Room Air General Appearance: Alert, Oriented X3, Cooperative, No Acute Distress HEENT/AIRWAY: MP 2 Lungs: Clear to Auscultation Heart: Regular Rate/Rhythm Meds/Labs/Diagnostics Admission Meds Current Medications Sodium Chloride (Normal Saline) 1,000 ml @ 100 mls/hr Q10H IV Last administered on 09/29/16t 13:29; Start 09/29/16 at 12:55 Labs Test 09/26/16 04:43 09/27/16 07:25 09/29/16 05:48 09/29/16 12:21 Total Bilirubin 0.2mg/dL (0.0-1.2) Aspartate Amino Transf (AST/SGOT) 13U/L (0-50) Alanine Aminotransferase (ALT/SGPT) 5U/L (0-32) Alkaline Phosphatase 69U/L (25-165) Total Protein 5.3g/dL (6.4-8.4) Albumin 3.5g/dL (3.4-5.0) Magnesium Level 2.1mg/dL (1.6-2.6) Sodium Level 138mEq/L (134-144) Potassium Level 4.8mEq/L (3.5-5.2) Chloride Level 101mEq/L (97-108) Carbon Dioxide Level 25mmol/L (18-29) Blood Urea Nitrogen 22mg/dL (8-27) Creatinine 0.82mg/dL (0.57-1.00) Estimat Glomerular Filtration Rate 98mL/min (>59) Glucose Level 85mg/dL (60-99) Calcium Level 9.0mg/dL (8.5-10.1) Procalcitonin 0.19ng/mL (0.00-0.08) White Blood Count 35.6th/mm3 (3.8-10.1) Red Blood Count 3.88mil/mm3 (3.90-5.20) Hemoglobin 11.8g/dL (12.0-15.6) Hematocrit 34.9% (35.0-46.0) Mean Corpuscular Volume 89.9fL (81-100) Mean Corpuscular Hemoglobin 30.4pg (27.0-35.0) Mean Corpuscular Hemoglobin Concent 33.8% (32.0-37.0) Red Cell Distribution Width 13.3% (12.3-15.4) Platelet Count 274bil/L (150-400) Neutrophils (%) (Auto) 93.3% (40-74) Lymphocytes (%) (Auto) 2.9% (14-46) Monocytes (%) (Auto) 2.3% (4-12) Eosinophils (%) (Auto) 0.4% (0-5) Basophils (%) (Auto) 0.2% (0-3) Plan Impression Patient chart reviewed, patient interviewed and anesthestic plan with risks, benefits, and alternatives discussed, and informed consent obtained. NPO per Anesth. Guidelines: Yes ASA Physical Status: ASA3 Severe Disease Anesthetic Plan: GA Bene/Risks/Altern/Consents: Yes HP Complete Prior to Induction: Yes Zoran Dickerson MD Sep 29, 2016 13:54
--- NOTE | 2016-09-29 14:36 | NUR ---
Pain/Bm/surgery Patient with low abd/pelvic pain medicated with po and iv pain meds as needed. Patient with slight nausea this am but felt better after having a moderate size bowel movement. Patient is currently off floor at this time having a port a cath placed.
--- NOTE | 2016-09-29 14:50 | CCS NOTE ---
[facility] [address], [address] [address] MEDICAL ONCOLOGY OFFICE NOTE PATIENT: MARBIN THOMAS : 1940 MR#: [id number] DATE: 09/23/2016 JOB ID: [id number] DATE: 09/29/2016 SUBJECTIVE: The patient has not had any fevers and no new issues since yesterday clinically. Continues to have lower abdominal pain and gas pain. She was able to have a large bowel movement, which was a significant improvement step for her given the course of last weeks. I have received multiple calls regarding her white count being elevated from Palliative Care and the surgical team. She has a reactive leukocytosis from the G-CSF injection that she received yesterday. PHYSICAL EXAMINATION: Vitals are stable. Lungs clear to auscultation. Abdomen is soft. No rash. LABORATORIES: Show a white count of 35,000, hemoglobin 11.8, platelets of 274, 93% neutrophils. Electrolytes stable. ASSESSMENT AND PLAN: A 75-year-old lady with newly diagnosed ovarian cancer post first dose of day one cycle one of carboplatin and Taxol on September 26. We are noticing a clinical improvement in the ability to pass bowel and better pain control. Her leukocytosis is not infectious in nature and it is related to expected rise of white blood cell count from the prophylactic G-CSF injection she received yesterday with 480 mcg of Granix. I communicated that with Dr. Durand of surgery, as well, and suggested to continue with the planned port placement later today. She has been n.p.o. since last night and appears somewhat dehydrated on her mucous membranes. I started her on normal saline.
--- NOTE | 2016-09-29 14:58 | NUR ---
Social Work-Readiness for D/C Data: EMR reviewed. Pt is on day 6 of hospitalization for pain management, hydration, constipation per H&P. Pt discussed in multidisciplinary rounds, pt is not medically ready for d/c. Pt to receive port placed today. Palliative is following for pain management. HH needs at d/c discussed. Pt will not be accessing her port at home, no HH indicated at this time. Pt is reported to be independent in room. Assessment: Pt who is independent with self-care at baseline. Plan: No HH services indicated in multidisciplinary rounds this morning. No SW orders have been received at this time. Pt to d/c home with her family to transport via POV. SW continues to follow. COLBY Wilkins
[2016-09-29] MEDS ORDERED: CeFAZolin Inj 2 gm / 50mL D5W IV ONE (15:02)
--- NOTE | 2016-09-29 15:08 | PCM.PALLBR ---
Palliative Care Recommendation Summary of palliative recommendations: Symptom management (Pain/other): 1. Pain: located mainly in lower bladder/vaginal area. Can be aching, throbbing and escalate to sharp pain. She has had 10/10 pain in last 24 hours and best pain control was 5-6/10 pain in last 24 hours. Her goal would be no pain: 0/10. She describes herself as having a high pain threshold. a. review of MAR for 09/28- pain medication use shows she needed 5mg IV dilaudid and 60mg oxycodone ER and 35mg (in form of oxycodone/APAP,both 10 and 5/325 tablets) in the last 24 hours. This is equal to 242mg oral morphine ( OME) and she needed only 140mg oral morphine equivalents (OME) the day before and 112.5mg OME the day before that. I am not comfortable increasing her oxycodone ER dose today as she is having a procedure with sedation this afternoon. So for the time being, I recommend we continue the same pain regimen overnight and I will adjust her long-acting oxycodone after morning rounds on 09/30. Recommend: Continue oxycodone ER (OxyContin) 20mg BID (Day 2). Continue 5/325 oxycodone/APAP as breakthrough pain medication. Continue 0.5-1mg IV dilaudid for severe breakthrough pain. 2. Anxiety: she previously reported that 0.5mg xanax po three times a day was helpful to cut down the sharpness of her lower abdominal pain. She was not started on xanax until her cancer was diagnosed in April 2016. a. Continue xanax 0.5 po TID. 3. Constipation: acute on chronic. This has been a long-standing problem, exacerbated by the start of opioid pain meds in April 2016. For years, she has used all sorts of laxatives prescribed by her PCPs and by GI specialists, and thinks that small amounts of lactulose at night worked well for her in past ( until a doctor stopped it). She is willing to try this again. a. start lactulose 20gm po q HS scheduled. Discussed with pt and counseled that if this works, we will send her home on scheduled nightly dose to prevent opiate induced constipation. b. add prn fleets mineral oil enema. Recommend sending home a RX of 3 enemas/week, to be used prn. Palliative will recheck pt comfort on these meds daily and prn. DPOA/Advanced Directives/POLST: 1. Code Status is FULL CODE. 2. HCPOA: They have HCPOA paperwork and Chely thinks they will assign daughter Vonnie, but no written paperwork completed yet. Family/emotional support: strong support from and children. Spiritual support: she is jainism, but the exact scientologist affiliation not yet clarified. Patient Goals: from discussions with her, she wants to continue weekly chemotherapy managed by Dr. Smith and trusts that he will "cure" her, as he "cured" her 's prostate cancer. Problems: End of Life Preferences just beginning to think about this possibility. Goals of Care continue chemotherapy, feels very confident being in the care of Dr. Smith. Disposition Anticipate probably back home with on September 29. Resuscitation Status Resuscitation Status: CPR: Attempt Resuscitation POLST Updates/Changes Previous POLST?: No Total time 25 minutes; >50% face to face with patient and/or family, providing counselling regarding plans and recommendations, and in care coordination with his/her medical teams. Palliative Brief Note Date of Service Sep 29, 2016 . Patient Identification: Chely is a pleasant 75 yo lady with recent diagnosis of serous ovarian carcinoma and past medical history of hypothyroidism, Parkinson's disease, HLD, HTN who [facility] for direct admission due to worsening lower abdominal pain and constipation to rule out partial obstruction and to start chemotherapy on Monday. Of note, she has lifelong chronic constipation which has progressively worsened in the last 3 months. Hospital Course: Mrs. Banks was admitted for pain control and evaluation to rule out partial bowel obstruction on 09/23/16. Over the next few days, scans showed progression of disease, with lots of stool in colon, but no bowel obstruction. She has received several forms of cathartic laxatives as an inpatient with good results. Initially, IV dilaudid and oral oxycodone were controlling pain, somewhat. On Hospital Day 5 (09/27) Pall Care Team asked to assess and treat pain. On 09/27-, her pain increased and more IV dilaudid used , despite the hope to try to convert her to oral pain medication in preparation for discharge home. We tried to transition her to long-acting pain medications by mouth 09/28, however her pain continued to increase overnight from 09/28-09/29 with ongoing need for IV dilaudid (See Plan). Subjective: Pt receiving PICC placement on morning rounds, and off floor in afternoon to have her port placement procedure in OR. I briefly spoke to her in a.m. and she said her pain was better controlled. Exam: unable to examine her due to procedures in room and off floor. Shruthi Dixon MD Sep 29, 2016 15:08 Shruthi Dixon MD Sep 29, 2016 15:08
[2016-09-29] MEDS ORDERED: Lactated Ringer's 1,000 ML IV SCH (15:22)
[2016-09-29] MEDS ORDERED: Lactated Ringer's 500 ML IV PRN (15:22)
[2016-09-29] MEDS ORDERED: Labetalol 5 mg/mL 20 mL Inj IV PRN (15:25)
[2016-09-29] MEDS ORDERED: fentaNYL-PF 50 mCg/mL 2 mL Inj IVPUSH PRN (15:25)
[2016-09-29] MEDS ORDERED: HYDROmorphone 1 mg/mL Inj IVPUSH PRN (15:25)
[2016-09-29] MEDS ORDERED: EPHEDrine Sulfate 50 mg/mL Inj IVPUSH PRN (15:25)
[2016-09-29] MEDS ORDERED: Atropine 0.4 mg/mL Inj IVPUSH PRN (15:25)
[2016-09-29] MEDS ORDERED: MetoCLOpramide 5 mg/mL 2 mL Inj IVPUSH PRN (15:25)
[2016-09-29] MEDS ORDERED: Phenylephrine 10,000 mCg/mL Inj IVPUSH PRN (15:25)
[2016-09-29] MEDS ORDERED: Ondansetron 2 mg/mL 2 mL Inj IVPUSH PRN (15:25)
[2016-09-29] MEDS ORDERED: Bupivacaine-MPF 0.25% 30 mL Inj INFILTRATE ONE (15:38)
--- NOTE | 2016-09-29 15:41 | PCM.SURGOP ---
Surgical Operative Report Date of Service: Sep 29, 2016 Pre Operative Diagnosis Serous adenocarcinoma of gynecologic primary Post Operative Diagnosis Serous adenocarcinoma of gynecologic primary Procedure: Right internal jugular port placement with ultrasound guidance with interpretation, and with fluoroscopic guidance with interpretation. Surgeon and Process Laboratory Specialist: Surgeon: Regina Durand M.D. Assistants: Jose A Daily MD R3; Oriana Treviño MS3 Indication for Procedure This is a 75-year-old woman diagnosed with serous adenocarcinoma of gynecologic primary. Chemotherapy was begun and port placement was requested. Findings: The port tip was at the cavoatrial junction at the end of the procedure. The port aspirated and flushed easily. It was flushed with 10 mL of heparin solution, 100U/mL, at the end of the case. Procedure Details The patient was brought to the operating room and placed in supine position. General anesthesia with a LMA was smoothly induced. Antibiotics were infused. A warming blanket and SCDs were placed. The operative field was prepped and draped in sterile fashion. A pause was performed to confirm the correct patient , procedure, site, and side. The right internal jugular vein was identified with the ultrasound. It was then accessed with a single stick, and a wire was threaded. Fluoroscopy confirmed the wires presence on the right side of the heart. The position of the tip of the wire at the cavoatrial junction was measured. A pocket was made in the tissue overlying the right pectoralis. The port was inserted and sewn into place with two interrupted Prolene stitches. It was then tunneled to the site of the wire using a small counter incision. The port catheter was then cut to the appropriate size as previously measured by the wires position on fluoroscopy. Dilation was then performed under fluoroscopic guidance. The sheath was left in place and the catheter was inserted. The sheath was removed and the two sides were found to be completely intact. The tip of the port was found to be positioned at the cavoatrial junction on fluoroscopy. The catheter was not kinked on fluoroscopy. The port aspirated and flushed easily at the end of the case. It was infused with 10 mL of 100 units/mL heparin solution. The subcutaneous tissue overlying the port was closed with a 3-0 Vicryl stitch. The skin at the port site, the wire access site, and counter incision was closed with a 4-0 subcuticular Monocryl stitch. Marcaine 0.5% with epinephrine was injected in the skin overlying the port as well as the stick site. A sterile dressing was placed. The patient tolerated the procedure well, and was awakened from general anesthesia and taken to the postoperative care unit in good condition. Complications There were no periprocedural complications identified. Surgical Specimen Removed: No Specimen sent to Pathology: No Anesthetic Plan: GA Grafts, Implants: Implants-See Implant Record Output, Estimated Blood Loss: 5 (ml) Blood Administration during presley: No Regina Durand MD Sep 29, 2016 15:40
--- NOTE | 2016-09-29 16:09 | PCM.ANEP1 ---
Post Anesthesia PACU Phase 1 Assessment Date of Service: Sep 29, 2016 Vital Signs Vital Signs Date Time Temp Pulse Resp B/P Pulse Ox O2 Delivery O2 Flow Rate FiO2 09/29/16 15:55 80 10 119/48 100 Simple Mask 6 09/29/16 15:50 36.3 82 10 122/50 99 Simple Mask 6 09/29/16 12:48 36.6 78 16 129/65 95 Room Air 09/29/16 08:27 36.5 82 16 131/65 99 Room Air Anesthetic Administered: GA Level of Alertness: Awake, talking WILSON's with Equal Strength: Yes Pain: No Pain Scale Score: 6 Nausea or Vomiting: No CV Function & Hydration Stable: Yes Airway Device: Oxygen Delivery: Simple Mask Lungs: Normal Air Movement PACU Phase 2 Assessment Follow up Care: N/A Patient Instructions Provided: N/A Zoran Dickerson MD Sep 29, 2016 16:09
--- NOTE | 2016-09-29 16:32 | DRSVH ---
PROCEDURE: X-RAY CHEST ONE VIEW, PORTABLE ([id number]) INDICATIONS: S/p RIJ port placement TECHNIQUE: One view of the chest was acquired. COMPARISON: [facility], CT, CT CHEST ABD PELVIS W CON, 09/23/2016, 19:31. [facility], CR, XR CHEST 2VW, 09/29/2016, 8:12. FINDINGS: Surgical changes and devices: There is a new right Port-A-Cath, the tip of which is in the lower SVC. Right PICC is unchanged. Cervical fixation hardware is intact. Lungs and pleura: No pleural effusions or pneumothorax. Lungs are clear. There is a large hiatal h ernia. Mediastinum: Mediastinal contours appear normal. Heart size is normal. Bones and chest wall: No suspicious bony lesions. Overlying soft tissues appear unremarkable. IMPRESSION: No acute cardiopulmonary findings after Port-A-Cath placement. Large hiatal hernia. Dictated by: Irma Villasenor M.D. on 09/29/2016 at 16:25 Approved by: Irma Villasenor M.D. on 09/29/2016 at 16:30
[2016-09-29] MEDS: Lactulose 20 Gm/30 mL 30 mL Syrup PO SCH (19:24)
[2016-09-29] MEDS: Carbidopa-Levodopa 25-250 mg Tablet PO SCH (19:27)
[2016-09-29 21:09] LABS: APPEARANCE,URINE CLEAR (CLEAR,HAZY); COLOR,URINE YELLOW (YELLOW); OCCULT BLOOD,URINE NEGATIVE (NEGATIVE); UROBILINOGEN,URINE NORMAL (NORMAL)
[2016-09-30] MEDS: 0.9% Sodium Chloride 1,000 ML IV SCH ×3 (02:15→21:13)
[2016-09-30] MEDS: HYDROmorphone 1 mg/mL Inj IVPUSH PRN ×5 (02:15→22:27)
--- NOTE | 2016-09-30 02:38 | NUR ---
Pain Patient rating pain a 7-8/10 at beginning of shift. Mostly in her lower ABD. Receiving 1mg of Dilaudid IVP G4lbexs PRN for pain management with effective results. States pain is down to a 6/10 where it is tolerable.
[2016-09-30 04:35] VITALS: BP 148/62; PULSE 74; RESP 17; O2SAT 95
[2016-09-30] MEDS: Pantoprazole 40 mg ER24 Tablet PO SCH (05:16)
[2016-09-30 05:46] LABS: BASOPHILS % (AUTO) 0.1 % (0-3); EOSINOPHILS % (AUTO) 0 % (0-5); MONOCYTES % (AUTO) 1.4 % (4-12); Mean Corpuscular Hemoglobin 30.2 pg (27.0-35.0); Mean Corpuscular Volume 91.4 fL (81-100); NEUTROPHILS % (AUTO) 95.8 % (40-74); Platelet Count 239 bil/L (150-400)
[2016-09-30] MEDS: Diltiazem CD 240 mg ER24 Capsule PO SCH (08:10)
[2016-09-30] MEDS: ALPRAZolam 0.5 mg Tablet PO SCH ×3 (08:11→20:35)
[2016-09-30] MEDS: oxyCODONE ER 20 mg ER12 Tablet PO SCH (08:11)
[2016-09-30 09:05] VITALS: BP 136/86; PULSE 77; RESP 18; O2SAT 98
[2016-09-30] MEDS: oxyCODONE ER 40 mg ER12 Tablet PO SCH ×2 (09:22→20:35)
--- NOTE | 2016-09-30 09:32 | PCM.PALLBR ---
Palliative Care Recommendation Summary of palliative recommendations: Symptom management (Pain/other): 1. Pain: located mainly in lower bladder/vaginal area. Can be aching, throbbing and escalate to sharp pain. She has had 7/10 pain in last 24 hours and best pain control was 2-3/10 pain in last 24 hours. Her goal would be no pain: 0/10. She describes herself as having a high pain threshold. a. review of MAR for 09/29-09/30 pain medication use shows she needed 6mg IV dilaudid and 45mg oxycodone in the last 24 hours. This is equal to about 168 oral morphine equivalents (OME). We need to increase her oxycodone ER today for her discharge home. Recommend: Increase oxycodone ER (OxyContin) to 40mg BID (Day 2). Discontinue 5/325 oxycodone/APAP as breakthrough pain medication. Discontinue 0.5-1mg IV dilaudid for severe breakthrough pain. Start oxycodone IR 15mg po q 4 hours as needed for breakthrough pain. Follow-up on pain control by Dr. Smith in his office on Monday. She will have outpatient chemotherapy that day as well. 2. Anxiety: she previously reported that 0.5mg xanax po three times a day was helpful to cut down the sharpness of her lower abdominal pain. She was not started on xanax until her cancer was diagnosed in April 2016. a. Continue xanax 0.5 po TID on discharge 3. Constipation: acute on chronic. This has been a long-standing problem, exacerbated by the start of opioid pain meds in April 2016. For years, she has used all sorts of laxatives prescribed by her PCPs and by GI specialists, and thinks that small amounts of lactulose at night worked well for her in past ( until a doctor stopped it). She is willing to try this again. a. start lactulose 20gm po q HS scheduled. Discussed with pt and counseled that if this works, we will send her home on scheduled nightly dose to prevent opiate induced constipation. b. add prn fleets mineral oil enema. Recommend sending home a RX of 3 enemas/week, to be used prn. DPOA/Advanced Directives/POLST: 1. Code Status is FULL CODE. 2. HCPOA: They have HCPOA paperwork and Chely thinks they will assign daughter Vonnie, but no written paperwork completed yet. Family/emotional support: strong support from and children. Spiritual support: she is restorationist, but the exact religious affiliation not clarified. Patient Goals: from discussions with her, she wants to continue weekly chemotherapy managed by Dr. Smith and trusts that he will "cure" her, as he "cured" her 's prostate cancer. Problems: End of Life Preferences just beginning to think about this possibility. Goals of Care continue chemotherapy, feels very confident being in the care of Dr. Smith. Disposition Anticipate probably back home with on September 29. Resuscitation Status Resuscitation Status: CPR: Attempt Resuscitation POLST Updates/Changes Previous POLST?: No . Pain: Severe Symptom management: Anxiety, Constipation Total time 35 minutes; >50% face to face with patient and/or family, providing counselling regarding plans and recommendations, and in care coordination with his/her medical teams. Palliative Brief Note Date of Service Sep 30, 2016 . Patient Identification: Chely is a pleasant 75 yo lady with recent diagnosis of serous ovarian carcinoma and past medical history of hypothyroidism, Parkinson's disease, HLD, HTN who was sent from [facility] by Dr Smith for direct admission due to worsening lower abdominal pain and constipation to rule out partial obstruction and to start chemotherapy on Monday. Of note, she has lifelong chronic constipation which has progressively worsened in the last 3 months. Hospital Course: Mrs. Banks was admitted for pain control and evaluation to rule out partial bowel obstruction on 09/23/16. Over the next few days, scans showed progression of disease, with lots of stool in colon, but no bowel obstruction. She has received several forms of cathartic laxatives as an inpatient with good results. Initially, IV dilaudid and oral oxycodone were controlling pain, somewhat. On Hospital Day 5 (09/27) Pall Care Team asked to assess and treat pain. On 09/27-, her pain increased and more IV dilaudid used , despite the hope to try to convert her to oral pain medication in preparation for discharge home. We tried to transition her to long-acting pain medications by mouth 09/28, however her pain continued to increase overnight from 09/28-09/29 with ongoing need for IV dilaudid. On 09/30, Hospital Day 8, she now has her port -a-cath and is alert, but still requiring intermittent IV dilaudid. We will increase her oxycodone ER today and start oxycodone IR in preparation for discharge later today. Subjective: Pt received PICC and port. Awake and smiling at Dr. Smith, plans to have chemo on Monday at his office. Dr. Smith is ready for her to go home today. Pt agreeable to this. Exam: Neuro: nonfocal, speech is clear. alert and oriented x 4. HEENT: unremarkable, no gross lesions, no scleral icterus. Neck: FROM Lungs: CTAB Cor: S1, S2, crescendo-decrescendo II-III/ murmur, nonradiating. Harlan best at ICS 3, MCL Abd: soft, nontender, Positive bowel sounds Musculoskeletal: moves all four extremities, equal strength, no wasting of limbs. Extremities: no edema. Shruthi Dixon MD Sep 30, 2016 09:32
--- NOTE | 2016-09-30 10:55 | PCM.PNSURG ---
Subjective Date of Service: Sep 30, 2016 Visit Information: Reason for Visit Pain Management,Hydration,Constipation Surgery/Surgery Date Post-Op Day # Date of Admission: Sep 23, 2016 at 16:11 Hospital Day # Subjective: No acute overnight events Very minimal pain at port site Denies CP or SOB Objective Vital Sign- Last 8 Hours Date Time Temp Pulse Resp B/P Pulse Ox O2 Delivery O2 Flow Rate FiO2 09/30/16 09:05 36.7 77 18 136/86 98 Room Air 09/30/16 04:35 36.7 74 17 148/62 95 Room Air Intake and Output- Last 8 Hour 09/30/16 Cumulative From/Thru 07:00 09/23/16 16:35 - 09/30/16 05:49 Intake Total 1814 ml 53235 ml Output Total 1050 ml 8985 ml Balance 764 ml 3122 ml Intake Oral 750 ml 7785 ml IV Total 1064 ml 4322 ml Output Urine Total 1050 ml 8980 ml Estimated Blood Loss 5 ml # Voids 13 # Bowel Movements 0 13 General: Alert, Cooperative, No Acute Distress Neck: Supple Lungs: Clear to Auscultation SURGICAL WOUND : Wound Location/Description Left upper chest port site dressed with tegaderm, appears clean, dry, and intact. No worrisome erythema or swelling. Result Diagram: 09/30/16 0525 09/29/16 0548 Assessment & Plan Impression POD#1 s/p RIJ power port placement. No acute issues. Port situated in appropriate position without complication. Problems: Plan - Continue PO pain meds as needed - Port is ok to use at this time - No further need for surgical intervention - Please do not hesitate to page or call Resuscitation Status: CPR: Attempt Resuscitation Umesh Daily MD Sep 30, 2016 10:55
[2016-09-30 13:19] VITALS: BP 128/86; PULSE 81; RESP 16; O2SAT 98
--- NOTE | 2016-09-30 14:30 | NUR ---
NUTRITION FOLLOW-UP ASSESS: Pt is a 75yo F admitted from the cancer center for worsening abdomen pain. She was recently diagnosis of serous ovarian carcinoma. Chemo was started 09/26. She had port placed 09/29. Oncology is following. Palliative care is involved for pain management. Pt's PO during admit has been variable of 0-100% on a general diet but overall good. Pt reported that her appetite is much improved now. She reported that prior to admit she had no appetite, no desire to eat and persistent nausea. Pt's family reported that they basically had to beg her to eat. She reported that prior to diagnosis she was intentionally trying to lose wt. She reported that she weighed 178lbs and intentionally lost ~ 28lbs and then unintentionally lost ~20 more lbs over the last 3 months (~13% wt loss x3 months= severe wt loss). PMHX: hypothyroidism, anxiety, Parkinson's, HLD, HTN, cystitis, hiatal hernia. LABS: Reviewed. MEDS: Reviewed. ebryl GI: BMx2 09/29- pt complaining of chronic constipation SKIN: no major issues CURRENT WTS: 60.1kg, BMI 24.2kg/m2, admit wt 58.9kg, IBW: 50kg, UBW: ~150lbs (68.18kg). Reported 13% wt loss x3 months DIET: General, PO 0-100% EST. NEEDS: Ca Kcals: 1485-1785kcal/day (25-30kcal/kg) Pro: 60-90g/day (1.0-1.5g/kg) NUTRITION DIAGNOSIS: 1.) Moderate pro/kcal malnutrition in the context of chronic illness related to ovarian cancer as evidence by reported 13% wt loss x3 months, <75% of estimated energy requirements for >1month, persistent nausea and decreased appetite. --IMPROVING NUTRITION INTERVENTION: 1.) RD Spoke with pt, pt's and pt's daughter on 09/27 about ways to increase kcal/pro when appetite is down. Discussed high kcal/pro foods to try and eating smaller more frequent meals. Discussed importance when feeling good to eat an overall healthy diet to keep strength up. Provided high kcal/pro recipe book, high kcal/pro nutrition therapy handout and nausea/vomiting handout. 2.) Oncology Dietitian will follow pt in outpt setting MONITOR / EVAL: PO, wt, GI, labs, POC, nutrition status, Will continue to monitor per moderate nutrition risk guidelines
--- NOTE | 2016-09-30 17:50 | NUR ---
pain control: Pt dose of long actiing Oxy ER increased today with some improvement in pain. Worked on transitioning off of IV Dilaudid and to oxycodone IR. Pt still having sharp pains to pelvic region intermittently. PAC accessed for fluids.
--- NOTE | 2016-09-30 19:12 | CCS NOTE ---
[facility] [address], [address] [address] MEDICAL ONCOLOGY OFFICE NOTE PATIENT: MARBIN THOMAS : 1940 MR#: [id number] DATE: 09/23/2016 JOB ID: [id number] DATE: 09/30/2016 SUBJECTIVE: The patient has had no significant issues since yesterday. Portal catheter was successfully placed. She still has the PICC line in place though. In talking to the nursing staff she still has been asking for IV pain medication for breakthrough pain while on OxyContin 20 mg twice daily. If. She has had bowel movements and has started to improve her oral intake. Lab studies show expected leukocytosis from G-CSF that is trending down. No other at significant abnormalities. PHYSICAL EXAMINATION: Vitals are stable, afebrile. Abdomen is soft. ASSESSMENT: A 75-year-old pleasant lady with newly diagnosed advanced ovarian cancer, highly symptomatic, with initiation of carboplatin and Taxol urgently on Monday, October 06. Portal catheter placed successfully yesterday. Her PICC line needs to be now discontinued. We discussed with the Palliative team to increase the dose of OxyContin further so that her need for breakthrough pain decreases. I am thinking that she could potentially later today be discharged, or potentially tomorrow, depending on the hospitalists' discretion. She is scheduled to come in to the clinic for followup on Monday for the 2nd dose of Taxol.
[2016-09-30 20:05] VITALS: BP 177/68; PULSE 81; RESP 17; O2SAT 97
[2016-09-30] MEDS: Carbidopa-Levodopa 25-250 mg Tablet PO SCH (20:34)
[2016-09-30] MEDS: Lactulose 20 Gm/30 mL 30 mL Syrup PO SCH (20:34)
[2016-09-30] MEDS: Ondansetron 2 mg/mL 2 mL Inj IVPUSH PRN (22:27)
--- NOTE | 2016-10-01 02:22 | NUR ---
Pain/ Nausea Pain at beginning of shift was 5/10 to abdomen. Receiving Oxycodone 15mg PO PRN for breakthrough pain. Received Dilaudid 1mg IVP once this shift for increase in pain after getting up to BR to have a BM. Pain currently a 2/10 per patient. One episode of nausea this shift, no emesis. Zofran 4 mg IVP given with effective results.
[2016-10-01 05:20] VITALS: BP 162/65; PULSE 77; RESP 17; O2SAT 96
[2016-10-01] MEDS: Pantoprazole 40 mg ER24 Tablet PO SCH (05:22)
[2016-10-01] MEDS: 0.9% Sodium Chloride 1,000 ML IV SCH (07:06)
[2016-10-01] MEDS ORDERED: OXYC5TAB72 PO (09:22)
[2016-10-01] MEDS ORDERED: OXYC40TA53 PO (09:22)
[2016-10-01] MEDS ORDERED: ALPR0.5T8 PO (09:22)
--- NOTE | 2016-10-01 09:25 | PCM.DIMED ---
Discharge Instructions Date of Service Oct 01, 2016 Dates of Hospitalization Sep 23, 2016 at 16:11 Discharge Diagnosis Discharge Diagnosis Metastatic high-grade serous carcinoma of ovary,mets to liver,omentum,adnexal mass Call your provider Call your provider for: Fever or Chills, Shortness of breath, Excessive diarrhea Patient Instructions Follow-up plan Follow up at Cancer Center Monday for Chemo Follow-up with PCP in: 1 week Kali Faulkner MD Oct 01, 2016 09:25
--- NOTE | 2016-10-01 09:30 | PCM.DC.MED ---
Discharge Summary Date of Service Oct 01, 2016 Dates of Hospitalization Date of Hospital Admission Sep 23, 2016 at 16:11 Date of Discharge: Oct 01, 2016 Providers: Admitting Physician: Dom Villalpando MD Primary Care Physician: Lida Lynn DO Attending Physician: Jan Avila MD Diagnosis at Time of Discharge Diagnosis at Time of Discharge Metastatic high-grade serous carcinoma of ovary,mets to liver,omentum,adnexal mass Procedures XRay, CTs & MRIs CT abd/pelvis 07/21/2016 IMPRESSION: 1. Slightly increased prominence of pancreatic tail cystic focus as above. Increased size of pancreatic tail lesion does raise concern for cystic neoplasm. 2. Interval development of soft tissue masses within the abdomen/pelvis as well as along the posterior aspect of the liver as described above. Given presence of enlarging cystic mass within the pancreas, findings are most concerning for metastatic disease. 3. Mild appearance of ascites within the lower pelvis particularly surrounding bowel loops. Dictated by: Jody Matthews M.D. on 07/21/2016 at 16:03 Approved by: Jody Matthews M.D. on 07/21/2016 at 16:25 ADDENDUM: The findings were discussed with Dr. Hackett 08/04/16 at 8:30 AM. In addition to the perihepatic focus identified adjacent to this appear aspect of the right kidney, there is a similar enhancing focus adjacent to the posterior right hepatic lobe measuring approximately 8 mm on series 2 image 17. Additionally, there is a low attenuation nodular contour along the superior right hepatic dome measuring up A. 15 mm, seen on series 2 image 10. As discussed, findings are concerning for neoplasm. Dictated by: Jody Matthews M.D. on 08/04/2016 at 9:13 PROCEDURE: CT CHEST, ABDOMEN AND PELVIS WTIH CONTRAST ([id number]) INDICATIONS: 75 year-old female with ovarian carcinoma and abdominal pain. Evaluate for bowel obstruction. IMPRESSION: 1. No evidence for bowel obstruction to explain abdominal pain. 2. Interval increased sizes of anterior omental lobulated mass, as well as bilateral adnexal mass lesions, consistent with disease progression in the setting of metastatic ovarian carcinoma. Additional tumor implants in the right hepatorenal recess and adjacent to the lateral right hepatic lobe have not significantly changed in size. 3. 12 x 8 mm lesion within the pancreatic tail has progressively increased in size since 2006, suggesting small cystic neoplasm as well. 4. Large retrocardiac hiatal hernia again noted. 5. Moderate sigmoid colon diverticulosis. Dictated by: Johnnie Roberto M.D. on 09/23/2016 at 19:41 ECG 12 Lead NSR Brief History Chely is a pleasant 75 yo lady with recent diagnosis of serous ovarian carcinoma and past medical history of hypothyroidism, Parkinson's disease, HLD, HTN who was sent from [facility] by Dr Smith for direct admission due to progressively worsening dull, acing lower abdominal pain of 3 months. She was seen by gastroenterology 2 month ago ,CT revealed multiple small masses and workup for primary continued.EGD unremarkable. Colonoscopy unable to pass past sigmoid. Main focus was on pancreatic tail due to known pancreatic tail cystic mass. EUS also done. She was also referred to Marcelle Cooley for further workup. Biopsy done 09/08/16 revealed high-grade serous carcinoma with elevated CEA 125. Three days ago she came to [facility] accompanying her who is also a patient of Dr. Smith, for 's follow-up of prostate cancer. She told Dr Smith she has been having worse lower abdominal pain with constipation. She was seen today for urgent oncology consult. Sent for direct admission due to worsening lower abdominal pain and constipation to rule out partial obstruction and to start chemotherapy on Monday. She also lost around 20 pounds in 3-4 months. She has lifelong chronic constipation which has progressively worsened in the last 3 months. Hospital Course: Mrs. Banks was admitted for pain control and rule out of partial bowel obstruction on 09/23/16. Over the next few days, scans showed progression of disease, but bowel obstruction was ruled out. She was, however, full of stool on scan. She has received several forms of cathartic laxatives. Currently IV dilaudid and oral oxycodone are controlling pain, somewhat. On Hospital Day 5, Pall Care Team asked to assess and treat pain. Hospital Course Chely is a pleasant 75 yo lady with past medical history of hypothyroidism, Parkinson's disease, HLD,HTN was sent from [facility] by Dr Smith for direct admission due to progressively worsening lower abdominal pain of 3 months. # Leukocytosis - in setting of no fever or obvious signs of infection - discussed with Dr. Smith, that this is to be expected from the Granix injection, patient should be ok to get port - a cath # advanced metastatic high-grade serous carcinoma of ovary,mets to liver,omentum ,adnexal mass -repeat CT C/A/P shows progression of disease -Chemotherapy ( carboplatin and Taxol) started 09/27,,port-a-cath in place - Dr. Smith to see patient on monday for chemo # Abdominal pain and constipation, improving -due to cancer . ruled out bowel obstruction -CT as above -pain better controlled with current management : ER (OxyContin) 20mg BID,5/325 oxycodone/APAP - palliative care on board, appreciate recs #Anxiety - continue xanas prn # hypothyroidism, -Continue home Synthroid #Parkinson's disease, -Continue home medication #HLD, -Continue home statin #HTN -Continue diltiazem Exam Vital Signs (Last) Date Time Temp Pulse Resp B/P Pulse Ox O2 Delivery O2 Flow Rate FiO2 10/01/16 05:20 36.5 77 17 162/65 96 Room Air 09/29/16 16:00 6 Test 09/26/16 04:43 09/27/16 07:25 09/29/16 05:48 09/29/16 20:26 Total Bilirubin 0.2mg/dL (0.0-1.2) Aspartate Amino Transf (AST/SGOT) 13U/L (0-50) Alanine Aminotransferase (ALT/SGPT) 5U/L (0-32) Alkaline Phosphatase 69U/L (25-165) Total Protein 5.3g/dL (6.4-8.4) Albumin 3.5g/dL (3.4-5.0) Magnesium Level 2.1mg/dL (1.6-2.6) Sodium Level 138mEq/L (134-144) Potassium Level 4.8mEq/L (3.5-5.2) Chloride Level 101mEq/L (97-108) Carbon Dioxide Level 25mmol/L (18-29) Blood Urea Nitrogen 22mg/dL (8-27) Creatinine 0.82mg/dL (0.57-1.00) Estimat Glomerular Filtration Rate 98mL/min (>59) Glucose Level 85mg/dL (60-99) Calcium Level 9.0mg/dL (8.5-10.1) Procalcitonin 0.19ng/mL (0.00-0.08) Urine Color Yellow (YELLOW) Urine Appearance Clear (CLEAR,HAZY) Urine pH 7.0 (5.0-8.0) Urine Specific Hudson 1.010 (1.003-1.035) Urine Protein Negativemg/dL (NEG,TRACE) Urine Glucose (UA) Negativemg/dL (NEGATIVE) Urine Ketones Negativemg/dL (NEGATIVE) Urine Occult Blood Negative (NEGATIVE) Urine Nitrite Negative (NEGATIVE) Urine Bilirubin Negative (NEGATIVE) Urine Urobilinogen Normalmg/dL (NORMAL) Urine Leukocyte Esterase Negative (NEGATIVE) Urine RBC 0-2/hpf (0-2) Urine WBC 0-5/hpf (0-5) Urine Epithelial Cells Occasional/hpf (NONE-MOD) Urine Crystals None seen (NONE SEEN) Urine Bacteria Few/hpf (NONE-FEW) Urine Hyaline Casts None/lpf (NONE) Urine Granular Casts None seen (NONE SEEN) Urine Waxy Casts None seen (NONE SEEN) Urine Red Blood Cell Casts None seen (NONE SEEN) Urine White Blood Cell Casts None seen (NONE SEEN) Urine Mucus None seen (None Seen) Urine Trichomonas None seen (NONE SEEN) Urine Yeast None (NONE SEEN) Urinalysis Comment None Urine Culture Reflexed Not indicated Test 09/30/16 05:25 White Blood Count 30.6th/mm3 (3.8-10.1) Red Blood Count 3.61mil/mm3 (3.90-5.20) Hemoglobin 10.9g/dL (12.0-15.6) Hematocrit 33.0% (35.0-46.0) Mean Corpuscular Volume 91.4fL (81-100) Mean Corpuscular Hemoglobin 30.2pg (27.0-35.0) Mean Corpuscular Hemoglobin Concent 33.0% (32.0-37.0) Red Cell Distribution Width 13.5% (12.3-15.4) Platelet Count 239bil/L (150-400) Neutrophils (%) (Auto) 95.8% (40-74) Lymphocytes (%) (Auto) 1.9% (14-46) Monocytes (%) (Auto) 1.4% (4-12) Eosinophils (%) (Auto) 0% (0-5) Basophils (%) (Auto) 0.1% (0-3) Band Neutrophils % 1% (1-5) Discharge Medications Discharge Medications Ascorbic Acid (Vitamin C) 500 Mg Capsule.er 1,000 MG PO DAILY (Reported) Carbidopa/Levodopa 25-250 mg (Carbidopa/Levodopa 25-250 mg) 1 Each Tablet 1 TABLET PO DAILY (Reported) Cholecalciferol (Vitamin D3) (Vitamin D3) 1,000 Unit Tab.chew 1,000 UNIT PO DAILY (Reported) Diltiazem ER (Diltiazem ER) 240 Mg Cap.er.24h 240 MG PO DAILY (Reported) Docusate Calcium (Stool Softener) 240 Mg Capsule 100 MG PO HS PRN (Reported) Levothyroxine (Levothyroxine) 88 Mcg Tablet 88 MCG PO DAILY (Reported) Lovastatin (Lovastatin) 20 Mg Tablet 20 MG PO HS (Reported) Magnesium Citrate (Magnesium Citrate) 100 Mg Tablet 500 MG PO DAILY (Reported) Pantoprazole DR (Pantoprazole DR) 40 Mg Tablet.dr 40 MG PO DAILY (Reported) Trazodone (Trazodone) 150 Mg Tablet 150 MG PO HS PRN (Reported) oxyCODONE ER (oxyCODONE ER) 40 Mg Tab.er.12h 40 MG PO BID Prescribed by: JAN AVILA MD As needed Alprazolam (Alprazolam) 0.5 Mg Tablet 0.5 MG PO TID PRN PRN For Anxiety Prescribed by: JAN AVILA MD Ondansetron (Zofran) 4 Mg Tablet 4 MG PO TID PRN PRN PRN For Nausea (Reported) oxyCODONE (oxyCODONE) 5 Mg Tablet 15 MG PO Q4H PRN PRN For Moderate Pain Prescribed by: JAN AVILA MD Followup Plan [facility] Follow-up with PCP in: 1 week Time spent 35 mins Jan Avila MD Oct 01, 2016 09:30
[2016-10-01] MEDS: ALPRAZolam 0.5 mg Tablet PO SCH (09:44)
[2016-10-01] MEDS: Diltiazem CD 240 mg ER24 Capsule PO SCH (10:06)
[2016-10-01] MEDS: oxyCODONE ER 40 mg ER12 Tablet PO SCH (10:06)
--- NOTE | 2016-10-01 12:35 | NUR ---
Social Work: Readiness for Discharge/Multidisciplinary Rounds D: EMR reviewed. Pt is on day 8 of hospitalization. Pt discussed in multidisciplinary rounds and is medically stable for discharge home today. No SW needs identified, no MD orders received. Pt's discharge discussed with MD - no other concerns identified. Pt confirmed her spouse will provide transport home via POV today. SW will continue to follow until time of discharge. A: Pt who is independent at baseline P: Pt to discharge home with spouse today via POV. No other needs identified at this time. No MD orders received. SW will continue to follow until time of discharge. COLBY Gracia
--- NOTE | 2016-10-01 15:30 | NUR ---
Social Work: Discharge D: EMR reviewed. Pt is on day 8 of hospitalization. Pt discussed in multidisciplinary rounds and is medically stable for discharge home today. No SW needs identified, no MD orders received. Pt's discharge discussed with MD - no other concerns identified. Pt confirmed her spouse will provide transport home via POV today. A: Pt who is independent at baseline P: Pt to discharge home with spouse today via POV. No other needs identified at this time. No MD orders received. COLBY Gracia
--- NOTE | 2016-10-01 19:33 | NUR ---
Discharge/anxiety Patient discharged home with this afternoon. Patient and given instructions for home care, meds and diet. Had lengthy discharge instructions as patient and had lots of questions and needed reassurance on things. Patient will follow up with oncologist Monday for 2nd round of chemotherapy. Prescriptions for pain meds given to patient and discussed. Patient did call back 2 times from home regarding prescriptions and her pharmacy did not have dose. I called local pharmacies and found who could fill her script and called patient at home to inform her. Patient very thankful for this.
[2016-10-03] MEDS ORDERED: OXYC1TAB24 PO (11:42)
== END 2016-10-01 13:40 | disposition home or self-care (01) | DRG 755 ==
LOC: OSC 16:11
PROVIDERS: ADMIT Internal Medicine; ATTEND Internal Medicine
PROC: 3E04305 Introduction of Other Antineoplastic into Central Vein, Percutaneous Approach (ICD-10-PCS; principal; 2016-09-26)
PROC: 0JH60XZ Insertion of Tunneled Vascular Access Device into Chest Subcutaneous Tissue and Fascia, Open Approach (ICD-10-PCS; 2016-09-29)
PROC: 02HV33Z Insertion of Infusion Device into Superior Vena Cava, Percutaneous Approach (ICD-10-PCS; 2016-09-29)
DX: C56.9 Malignant neoplasm of unspecified ovary (principal); C78.7 Secondary malignant neoplasm of liver and intrahepatic bile duct; C78.6 Secondary malignant neoplasm of retroperitoneum and peritoneum; E44.0 Moderate protein-calorie malnutrition; G89.3 Neoplasm related pain (acute) (chronic); E03.9 Hypothyroidism, unspecified; G20 Parkinson's disease; I10 Essential (primary) hypertension; E78.5 Hyperlipidemia, unspecified; Z87.891 Personal history of nicotine dependence; K59.09 Other constipation; F41.9 Anxiety disorder, unspecified; Z68.24 Body mass index [BMI] 24.0-24.9, adult; D72.829 Elevated white blood cell count, unspecified